=== PATIENT | female | born 1970 | race American Indian/Alaskan Native ===

== ENCOUNTER 2017-09-28 11:42 | Inpatient (IN) | payer OTHER ==
[2017-09-28] MEDS ORDERED: NACL 0.9% 500 ML 500 ML IV ONE (11:53)
--- NOTE | 2017-09-28 12:25 | XRay Report ---
AP CHEST: HISTORY: Sepsis AP view of the chest demonstrates a normal mediastinal and cardiac contour with clear lungs and normal bony and soft tissue structures. IMPRESSION: Unremarkable AP chest.
[2017-09-28 12:42] LABS: Basophils % (Auto) 0.6 % (0.0-1.8); Eosinophils % (Auto) 15.1 % (0.0-4.3); Hematocrit 34.6 % (30.3-42.9); Hemoglobin 10.6 gm/dl (10.1-14.3); Lymphocytes # (Auto) 1.4 K/mm3 (1.2-5.4); Lymphocytes % (Auto) 21.2 % (13.4-35.0); Mean Corpuscular HGB Conc 31 % (30-34); Monocytes # (Auto) 0.4 K/mm3 (0.0-0.8); Monocytes % (Auto) 6.5 % (0.0-7.3); Platelet Count 164 K/mm3 (140-440); Red Blood Count 5.12 M/mm3 (3.65-5.03); Red Cell Distribution Width 17.1 % (13.2-15.2)
[2017-09-28 12:43] LABS: Mean Corpuscular Hemoglobin 21 pg (28-32); Mean Corpuscular Volume 68 fl (79-97)
[2017-09-28 12:51] LABS: INR 0.93 (0.87-1.13)
[2017-09-28 12:53] LABS: Alanine Aminotransferase 23 units/L (7-56); Albumin 3.6 g/dL (3.9-5); BUN/Creatinine Ratio 14; Blood Urea Nitrogen 10 mg/dL (7-17); Hemolysis Index 2
[2017-09-28] MEDS ORDERED: SUBLIMAZE IV ONE (19:04)
[2017-09-28] MEDS ORDERED: ZOFRAN IV ONE (19:04)
--- NOTE | 2017-09-28 19:09 | Emergency Department Report ---
ED Abdominal Pain HPI - General Chief Complaint: Abdominal Pain Stated Complaint: COMPLICATIONS POST SURGERY Time Seen by Provider: 09/28/17 18:46 Source: patient Mode of arrival: Ambulatory Limitations: No Limitations - History of Present Illness Initial Comments: 47 year-old who presents with abdominal pain. Seen in surgery clinic today and sent for CT. had ventral hernia repair early july complicated by what soudns like seroma formation. Now with midline swelling again. Sent from clinic for CT. endorses NV. No true fever, Tmax 100.1. MD Complaint: abdominal pain -: Gradual Location: periumbilical Radiation: none Migration to: no migration Severity: severe Quality: stabbing, sharp Consistency: constant Improves With: nothing Worsens With: nothing Context: recent surgery/procedure Associated Symptoms: nausea, vomiting - Related Data LMP (females 10-50): this week Home Medications Medication Instructions Recorded Confirmed Last Taken No Known Home Medications [No 09/28/17 09/28/17 Unknown Reported Home Medications] Allergies Allergy/AdvReac Type Severity Reaction Status Date / Time methylprednisolone Allergy Hives Verified 09/28/17 11:45 [From Solu-Medrol] moxifloxacin [From Avelox] Allergy Hives Verified 09/28/17 11:45 ED Review of Systems ROS: Stated complaint: COMPLICATIONS POST SURGERY Other details as noted in HPI Comment: All other systems reviewed and negative ED Past Medical Hx - Past Medical History Previous Medical History?: Yes Hx COPD: Yes - Surgical History Past Surgical History?: Yes Hx Cholecystectomy: Yes Additional Surgical History: hernia repair . - Social History Smoking Status: Never Smoker Substance Use Type: Alcohol - Medications Home Medications: Home Medications Medication Instructions Recorded Confirmed Last Taken Type No Known Home Medications [No 09/28/17 09/28/17 Unknown History Reported Home Medications] ED Physical Exam - General Limitations: No Limitations General appearance: alert, in no apparent distress - Head Head exam: Present: atraumatic, normocephalic - Eye Eye exam: Present: normal appearance - ENT ENT exam: Present: normal exam, mucous membranes moist - Neck Neck exam: Present: normal inspection - Respiratory Respiratory exam: Present: normal lung sounds bilaterally. Absent: respiratory distress - Cardiovascular Cardiovascular Exam: Present: regular rate, normal rhythm. Absent: systolic murmur, diastolic murmur, rubs, gallop - GI/Abdominal GI/Abdominal exam: Present: soft, other (Midline lower abdominal incision with palpable tender masses, 2-3 cm. multiple). Absent: distended, guarding, rebound - Extremities Exam Extremities exam: Present: normal inspection - Back Exam Back exam: Present: normal inspection - Neurological Exam Neurological exam: Present: alert, oriented X3 - Psychiatric Psychiatric exam: Present: normal affect, normal mood - Skin Skin exam: Present: warm, dry, intact, normal color. Absent: rash ED Course Vital Signs 09/28/17 09/28/17 11:45 20:12 Temperature 99.2 F 99.2 F Pulse Rate 96 H 90 Respiratory 20 18 Rate Blood Pressure 146/77 Blood Pressure 135/60 [Left] O2 Sat by Pulse 98 98 Oximetry ED Medical Decision Making - Lab Data Result diagrams: 09/28/17 12:02 09/28/17 12:02 Lab Results 09/28/17 09/28/17 09/28/17 Range/Units 12:02 12:02 12:02 WBC 6.5 (4.5-11.0) K/mm3 RBC 5.12 H (3.65-5.03) M/mm3 Hgb 10.6 (10.1-14.3) gm/dl Hct 34.6 (30.3-42.9) % MCV 68 L (79-97) fl MCH 21 L (28-32) pg MCHC 31 (30-34) % RDW 17.1 H (13.2-15.2) % Plt Count 164 (140-440) K/mm3 Lymph % (Auto) 21.2 (13.4-35.0) % [place] % (Auto) 6.5 (0.0-7.3) % Eos % (Auto) 15.1 H (0.0-4.3) % Baso % (Auto) 0.6 (0.0-1.8) % Lymph # 1.4 (1.2-5.4) K/mm3 [place] # 0.4 (0.0-0.8) K/mm3 Eos # 1.0 H (0.0-0.4) K/mm3 Baso # 0.0 (0.0-0.1) K/mm3 Seg Neutrophils % 56.6 (40.0-70.0) % Seg Neutrophils # 3.7 (1.8-7.7) K/mm3 PT 12.9 (12.2-14.9) Sec. INR 0.93 (0.87-1.13) VBG pH (7.320-7.420) Sodium 137 (137-145) mmol/L Potassium 4.1 (3.6-5.0) mmol/L Chloride 96.7 L (98-107) mmol/L Carbon Dioxide 27 (22-30) mmol/L Anion Gap 17 mmol/L BUN 10 (7-17) mg/dL Creatinine 0.7 (0.7-1.2) mg/dL Estimated GFR > 60 ml/min BUN/Creatinine Ratio 14 % Glucose 139 H (65-100) mg/dL Lactic Acid (0.7-2.0) mmol/L Calcium 9.0 (8.4-10.2) mg/dL Total Bilirubin 0.60 (0.1-1.2) mg/dL AST 21 (5-40) units/L ALT 23 (7-56) units/L Alkaline Phosphatase 49 (35-129) units/L Total Protein 7.2 (6.3-8.2) g/dL Albumin 3.6 L (3.9-5) g/dL Albumin/Globulin Ratio 1.0 % HCG, Qual (Negative) Urine Color (Yellow) Urine Turbidity (Clear) Urine pH (5.0-7.0) Ur Specific [place] (1.003-1.030) Urine Protein (Negative) mg/dL Urine Glucose (UA) (Negative) mg/dL Urine Ketones (Negative) mg/dL Urine Blood (Negative) Urine Nitrite (Negative) Ur Reducing Substances Urine Bilirubin (Negative) Urine Ictotest Urine Urobilinogen (<2.0) mg/dL Ur Leukocyte Esterase (Negative) Urine WBC (Auto) (0.0-6.0) /HPF Urine RBC (Auto) (0.0-6.0) /HPF U Epithel Cells (Auto) (0-13.0) /HPF Urine Mucus /HPF Urine Yeast (Budding) /HPF Urine Sperm (DELIVERY DRIVER) /HPF 09/28/17 09/28/17 09/28/17 Range/Units 12:02 12:02 19:22 WBC (4.5-11.0) K/mm3 RBC (3.65-5.03) M/mm3 Hgb (10.1-14.3) gm/dl Hct (30.3-42.9) % MCV (79-97) fl MCH (28-32) pg MCHC (30-34) % RDW (13.2-15.2) % Plt Count (140-440) K/mm3 Lymph % (Auto) (13.4-35.0) % [place] % (Auto) (0.0-7.3) % Eos % (Auto) (0.0-4.3) % Baso % (Auto) (0.0-1.8) % Lymph # (1.2-5.4) K/mm3 [place] # (0.0-0.8) K/mm3 Eos # (0.0-0.4) K/mm3 Baso # (0.0-0.1) K/mm3 Seg Neutrophils % (40.0-70.0) % Seg Neutrophils # (1.8-7.7) K/mm3 PT (12.2-14.9) Sec. INR (0.87-1.13) VBG pH 7.351 (7.320-7.420) Sodium (137-145) mmol/L Potassium (3.6-5.0) mmol/L Chloride (98-107) mmol/L Carbon Dioxide (22-30) mmol/L Anion Gap mmol/L BUN (7-17) mg/dL Creatinine (0.7-1.2) mg/dL Estimated GFR ml/min BUN/Creatinine Ratio % Glucose (65-100) mg/dL Lactic Acid 1.20 (0.7-2.0) mmol/L Calcium (8.4-10.2) mg/dL Total Bilirubin (0.1-1.2) mg/dL AST (5-40) units/L ALT (7-56) units/L Alkaline Phosphatase (35-129) units/L Total Protein (6.3-8.2) g/dL Albumin (3.9-5) g/dL Albumin/Globulin Ratio % HCG, Qual Negative (Negative) Urine Color (Yellow) Urine Turbidity (Clear) Urine pH (5.0-7.0) Ur Specific [place] (1.003-1.030) Urine Protein (Negative) mg/dL Urine Glucose (UA) (Negative) mg/dL Urine Ketones (Negative) mg/dL Urine Blood (Negative) Urine Nitrite (Negative) Ur Reducing Substances Urine Bilirubin (Negative) Urine Ictotest Urine Urobilinogen (<2.0) mg/dL Ur Leukocyte Esterase (Negative) Urine WBC (Auto) (0.0-6.0) /HPF Urine RBC (Auto) (0.0-6.0) /HPF U Epithel Cells (Auto) (0-13.0) /HPF Urine Mucus /HPF Urine Yeast (Budding) /HPF Urine Sperm (DELIVERY DRIVER) /HPF 09/28/17 Range/Units 19:36 WBC (4.5-11.0) K/mm3 RBC (3.65-5.03) M/mm3 Hgb (10.1-14.3) gm/dl Hct (30.3-42.9) % MCV (79-97) fl MCH (28-32) pg MCHC (30-34) % RDW (13.2-15.2) % Plt Count (140-440) K/mm3 Lymph % (Auto) (13.4-35.0) % [place] % (Auto) (0.0-7.3) % Eos % (Auto) (0.0-4.3) % Baso % (Auto) (0.0-1.8) % Lymph # (1.2-5.4) K/mm3 [place] # (0.0-0.8) K/mm3 Eos # (0.0-0.4) K/mm3 Baso # (0.0-0.1) K/mm3 Seg Neutrophils % (40.0-70.0) % Seg Neutrophils # (1.8-7.7) K/mm3 PT (12.2-14.9) Sec. INR (0.87-1.13) VBG pH (7.320-7.420) Sodium (137-145) mmol/L Potassium (3.6-5.0) mmol/L Chloride (98-107) mmol/L Carbon Dioxide (22-30) mmol/L Anion Gap mmol/L BUN (7-17) mg/dL Creatinine (0.7-1.2) mg/dL Estimated GFR ml/min BUN/Creatinine Ratio % Glucose (65-100) mg/dL Lactic Acid (0.7-2.0) mmol/L Calcium (8.4-10.2) mg/dL Total Bilirubin (0.1-1.2) mg/dL AST (5-40) units/L ALT (7-56) units/L Alkaline Phosphatase (35-129) units/L Total Protein (6.3-8.2) g/dL Albumin (3.9-5) g/dL Albumin/Globulin Ratio % HCG, Qual (Negative) Urine Color Yellow (Yellow) Urine Turbidity Slightly cloudy (Clear) Urine pH 6.0 (5.0-7.0) Ur Specific [place] 1.024 (1.003-1.030) Urine Protein 100 mg/dl (Negative) mg/dL Urine Glucose (UA) Neg (Negative) mg/dL Urine Ketones Neg (Negative) mg/dL Urine Blood Lg (Negative) Urine Nitrite Neg (Negative) Ur Reducing Substances Not Reportable Urine Bilirubin Neg (Negative) Urine Ictotest Not Reportable Urine Urobilinogen 2.0 (<2.0) mg/dL Ur Leukocyte Esterase Sm (Negative) Urine WBC (Auto) > 182.0 H (0.0-6.0) /HPF Urine RBC (Auto) > 182.0 (0.0-6.0) /HPF U Epithel Cells (Auto) 11.0 (0-13.0) /HPF Urine Mucus 3+ /HPF Urine Yeast (Budding) 3+ /HPF Urine Sperm 1+ (DELIVERY DRIVER) /HPF - Radiology Data Radiology results: report reviewed - Medical Decision Making Ms Wagner is a 47 year-old woman with hx of COPD and ventral hernia repair in July who presents from general surgery office for evaluation and CT scan. Had seroma drained previously. Has tender swelling in her incision site. VSS. Afebrile here. Labs wnl. Exam with non-reducible masses within her incision. Suspect this is seroma vs hernia vs abscess. no evidence of infection on exam or labs. CT reveals small fat containing hernias. Unable to reduce. Spoke with Dr. Richter who would like admission to hospitalist. Would like IR consult for drainage. Dr Richter will see patient in the morning. Per Dr Richter, patient is NOT to receive narcotics. Received one dose fentanyl on arrival. Given toradol as well. Admit to hospital medicine. Critical care attestation.: If time is entered above; I have spent that time in minutes in the direct care of this critically ill patient, excluding procedure time. ED Disposition Clinical Impression: Ventral hernia, recurrent Disposition: DC-09 OP ADMIT IP TO THIS HOSP Is pt being admited?: Yes Does the pt Need Aspirin: No Condition: Stable Instructions: Abdominal Pain (ED) Referrals: PRIMARY CARE, [Primary Care Provider] - 3-5 Days
[2017-09-28 20:03] LABS: Mucus,Urine 3+ /HPF; Sperm,Urine 1+ /HPF (NP)
[2017-09-28 20:08] LABS: Bilirubin,Urine NEG (Negative); Blood,Urine LG (Negative)
[2017-09-28 20:11] LABS: RBC,Urine > 182.0 /HPF (0.0-6.0); WBC,Urine > 182.0 /HPF (0.0-6.0)
[2017-09-28 20:13] LABS: Color,Urine Yellow (Yellow)
--- NOTE | 2017-09-28 20:48 | Cat Scan Report ---
FINAL REPORT PROCEDURE: CT ABDOMEN PELVIS WO CON TECHNIQUE: Computerized axial tomography of the abdomen and pelvis was performed without intravenous contrast. This study is performed without intravascular contrast material and its sensitivity for abdominal and pelvic pathology, including neoplasms, inflammation, abscess, free fluid, thrombosis, arterial dissection and infarction, is reduced compared with a contrast enhanced study. HISTORY: abdominal pain COMPARISON: No prior studies are available for comparison. FINDINGS: Lower Lung klein: No focal abnormality seen. Upper Abdomen: Large hiatal hernia is visualized. Gallbladder is surgically absent. Unenhanced images of the liver are unremarkable. The adrenal glands, pancreas and spleen are unremarkable. Kidneys, Ureters and Urinary bladder: There is a coarse benign-appearing calcification in the middle 3rd of the right kidney measuring 1.5 x 0.7 centimeters. Second smaller calcification also visualized measuring approximately 4 millimeters in size. No renal masses are identified. There is no hydronephrosis. No ureteral calculi are visualized. The ureters are not distended. Urinary bladder is nearly empty and difficult to characterize. Retroperitoneum: Atherosclerotic changes are seen in the abdominal aorta and iliac arteries. No aneurysm is visualized. Nonspecific subcentimeter lymph nodes are seen in the retroperitoneum. No pathologically enlarged lymph nodes are identified. Bowel: The rectum is moderately distended with stool otherwise is unremarkable. Minimal diverticulosis visualized in the splenic flexure and mid transverse colon. The appendix is not visualized. No evidence of bowel obstruction. There is no ascites or free intraperitoneal gas. There is a anterior pelvic wall hernia just to the left of midline. This contains a moderate amount of fluid. There is also adipose tissue present. This also shows irregular soft tissue density anteriorly seen on image 139 series 2. This measures up to 1.4 centimeters in thickness. This could represent a seroma or hematoma within a hernia. Wall thickening anteriorly may represent inflammatory response. I cannot exclude a mass in the anterior wall of the hernia. Reproductive organs: Uterus and adnexa are unremarkable. Other: No acute bony abnormalities are visualized. IMPRESSION: Abnormal fluid collections seen adipose tissue anterior to the lower pelvis. I suspect this represents a hernia containing moderate amount of fluid and adipose tissue. As indicated above there appears to be soft tissue thickening of the anterior wall the hernia sac. This may represent an inflammatory response. I cannot exclude a mass. There is no evidence of bowel obstruction. No ascites is seen in the peritoneal cavity. Prior cholecystectomy. Benign-appearing moderate-sized calculus right kidney. The rectum is moderately distended with stool otherwise is unremarkable. Minimal colonic diverticulosis as described. Large hiatal hernia is visualized..
[2017-09-28] MEDS ORDERED: MORPHINE IV ONE (21:10)
[2017-09-28] MEDS ORDERED: TORADOL IV ONE (21:11)
[2017-09-28] MEDS ORDERED: ZOFRAN IV PRN (22:28)
[2017-09-28] MEDS ORDERED: TYLENOL PO PRN (22:29)
[2017-09-29] MEDS: HEPARIN SUB-Q SCH ×3 (07:38→23:03)
--- NOTE | 2017-09-29 08:48 | History and Physical Report ---
CHIEF COMPLAINT: Abdominal discomfort. HISTORY OF PRESENT ILLNESS: The patient is a 47-year-old female presenting with abdominal pain. The patient went for followup with the surgeon, [place]. She had surgery involving ventral hernia repair about a month ago and has been having some complications with swelling and fluid collection. She was asked by the surgeon to come to the office. At the surgeon's office, the patient was evaluated and then sent to the Emergency Room. There is no history of fever, no history of chills. There is history of nausea and vomiting, but no history of constipation or diarrhea. The patient denied history of chest pain or shortness of breath and only complained about abdominal pain with swelling around the surgical area. PAST MEDICAL HISTORY: Pertinent for COPD. PAST SURGICAL HISTORY: Pertinent for recent hernia repair as well as the cholecystectomy and . FAMILY HISTORY: Noncontributory. SOCIAL HISTORY: The patient does not smoke, does not drink alcohol, and does not use illicit drugs. MEDICATIONS: The patient's home medications are not known. ALLERGIES: The patient is allergic to METHYLPREDNISOLONE AND MOXIFLOXACIN. REVIEW OF SYSTEMS. CONSTITUTIONAL: There is no fever, no chills, no diaphoresis. HEENT: There is no headache or sore throat. CARDIOVASCULAR: There is no chest pain or orthopnea. RESPIRATORY: There is no shortness of breath or cough. GASTROINTESTINAL: Swelling in the anterior abdominal area noted. MUSCULOSKELETAL: There is no joint swelling or tenderness. DERMATOLOGICAL: There is no skin rash . GENITOURINARY: Show no costovertebral angle tenderness. PERTINENT LABORATORY AND IMAGING STUDIES: The patient has CBC done that shows normal white cells, normal hemoglobin and normal hematocrit with unremarkable CBC differential. The patient's chemistry was unremarkable. Urinalysis show positive urine leukocyte esterase with elevated urine WBC of greater than 182 and elevated urine RBC of greater than 182. IMAGING STUDIES: The patient had an abdominal and pelvic CT with contrast done and this shows hernia with fluid and adipose tissue collection in the anterior aspect of the abdomen. DIAGNOSES: 1. Ventral hernia at the surgical site. 2. Urinary tract infection. PLAN: The patient will be admitted to medical floor and will continue the Surgical Consult with Dr. Christensen who was part of the surgeons that handles the patient's surgical care. The patient will also be on IV ceftriaxone 1 gram daily for treatment of UTI and DVT prophylaxis will be with heparin 5000 units subq q. 12 and the patient will be on IV Zofran 4 mg every 8 hours as needed for nausea and vomiting. Further management of the patient's condition will be determined by the surgeon. The patient will remain n.p.o. until seen by the surgeon. JOB# [id number] OCN/NTS
[2017-09-29] MEDS ORDERED: ROCEPHIN/NS 1 GM/50 ML 1 GM/50 ML BAG IV SCH (10:00)
[2017-09-29] MEDS ORDERED: VERSED IV ONE (10:27)
[2017-09-29] MEDS ORDERED: SUBLIMAZE IV ONE (10:27)
--- NOTE | 2017-09-29 11:51 | Consultation ---
History of Present Illness - Reason for Consult Consult date: 09/29/17 abdominal wall seroma - History of Present Illness With a history of ventral hernia repair presenting with abdominal wall seroma. She complains of abdominal pain. Past History Past Surgical History: Other (ventral hernia repair) Social history: no significant social history Family history: no significant family history Medications and Allergies Allergies Allergy/AdvReac Type Severity Reaction Status Date / Time methylprednisolone Allergy Hives Verified 09/28/17 11:45 [From Solu-Medrol] moxifloxacin [From Avelox] Allergy Hives Verified 09/28/17 11:45 Home Medications Medication Instructions Recorded Confirmed Last Taken Type No Known Home Medications [No 09/28/17 09/28/17 Unknown History Reported Home Medications] Active Meds: Active Medications Acetaminophen (Tylenol) 650 mg PO Q4H PRN PRN Reason: Fever >101 Last Admin: 09/29/17 07:54 Dose: 650 mg Heparin Sodium (Porcine) (Heparin) 5,000 unit SUB-Q Q12HR ELOY Last Admin: 09/29/17 11:22 Dose: Not Given Ceftriaxone Sodium 1 gm/ (Sodium Chloride) 20 mls @ 2 mls/min IV Q24HR ELOY Ondansetron HCl (Zofran) 4 mg IV Q8H PRN PRN Reason: Nausea And Vomiting Review of Systems All systems: negative Exam - Constitutional Vitals: Temp Pulse Resp BP Pulse Ox 98.1 F 83 14 113/63 98 09/29/17 11:20 09/29/17 11:30 09/29/17 11:30 09/29/17 11:30 09/29/17 11:30 General appearance: Present: no acute distress, obese - EENT Eyes: Present: PERRL, EOM intact ENT: hearing intact - Neck Neck: Present: supple, normal ROM - Respiratory Respiratory effort: normal - Cardiovascular Rhythm: regular - Extremities Extremities: no ischemia - Abdominal General gastrointestinal: Present: tender (abdominal wall) - Rectal Rectal Exam: deferred - Integumentary Integumentary: Present: clear - Psychiatric Psychiatric: appropriate mood/affect, cooperative Results - Labs CBC & Chem 7: 09/28/17 12:02 09/28/17 12:02 Labs: Abnormal lab results 09/28/17 09/28/17 09/28/17 Range/Units 12:02 12:02 19:36 RBC 5.12 H (3.65-5.03) M/mm3 MCV 68 L (79-97) fl MCH 21 L (28-32) pg RDW 17.1 H (13.2-15.2) % Eos % (Auto) 15.1 H (0.0-4.3) % Eos # 1.0 H (0.0-0.4) K/mm3 Chloride 96.7 L (98-107) mmol/L Glucose 139 H (65-100) mg/dL Albumin 3.6 L (3.9-5) g/dL Urine WBC (Auto) > 182.0 H (0.0-6.0) /HPF - Imaging and Cardiology CT scan - abdomen: image reviewed Assessment and Plan Patient will be scheduled for placement of an 8 Swedish drain within the seroma to allow for drainage. Once the drainage volume decreases below 10 the 15 mL's per day, it may be removed.
[2017-09-29] MEDS: cefTRIAXone 1 GM in NACL 0.9% 20 ML IV SCH (12:05)
--- NOTE | 2017-09-29 13:25 | Cat Scan Report ---
Exam: Exam: CT-guided placement of drainage catheter in abdominal wall seroma Clinical indication: Patient with abdominal wall seroma D.: 09/29/ and 18 Procedure: Following an explanation of the risks, benefits and alternatives; written informed consent was obtained. The patient was brought to the CT scanner and placed in supine position on the gantry. Initial career development associate images the abdomen were performed an appropriate access site was chosen in the left lower quadrant. Patient's left lower quadrant was prepped and draped in the usual sterile fashion. 1% lidocaine was used for anesthesia. Using intermittent CT guidance, an 18-gauge 10 cm trocar needle was advanced into the abdominal wall seroma. There was prompt return of predominantly serous fluid with a serosanguineous component. No purulence is identified. A 0.035 guidewire was then advanced through the needle and coiled within the multiloculated seromatous. The needle was removed. Following serial dilation over the guidewire, an 8 Chinese pigtail catheter was advanced over the guidewire and positioned within the medial central aspect of the fluid collections. Approximately 10 mL's of serous fluid was aspirated. Samples were sent for laboratory analysis. The catheter was securely fastened to the skin surface using 2-0 Ethilon suture and a sterile dressing applied. The catheter was then placed to PADDY bulb drainage. The patient tolerated the procedure well. There were no immediate post procedure complications. Conscious sedation was performed under the guidance of radiologic nursing. Continuous cardiopulmonary monitoring was utilized. Impression: 1) CT-guided placement of 8 Chinese drainage catheter in abdominal wall seroma with prompt return of serous fluid. A component of fluid was sero-sanguinous. No purulence is identified. Sample sent for laboratory analysis.
--- NOTE | 2017-09-29 15:45 | Progress Note ---
Assessment and Plan Ventral hernia repair presenting with abdominal wall seroma - s/p Ct guided drainage placed, cont supportive care - pt will do outpt follow up SIRS - probably due to abdominal wall seroma - will follow urine cx and wound cx - cont abx for now Obesity: dietary recommendation DVT Px, lovenox Brief History: 47 yo F with hx of ventral hernia and multiple abdominal operations now s/p robotic assisted laparoscopic lysis of adhesions, ventral hernia repair with mesh in July [address] Christensen was sent to ER for fever w/u as temp in office was 100.1. It was also felt that she likely had re accumulated seroma which was leading to her pain. She was seen by IR and a CT guided drainage catheter was placed. Radiological data: CT drain cyst/abscess: CT-guided placement of 8 [place] drainage catheter in abdominal wall seroma with prompt return of serous fluid. A component of fluid was sero-sanguinous. No purulence is identified. Sample sent for laboratory analysis. CT abdomen/pelvis Abnormal fluid collections seen adipose tissue anterior to the lower pelvis. I suspect this represents a hernia containing moderate amount of fluid and adipose tissue. As indicated above there appears to be soft tissue thickening of the anterior wall the hernia sac. This may represent an inflammatory response. I cannot exclude a mass. There is no evidence of bowel obstruction. No ascites is seen in the peritoneal cavity. Prior cholecystectomy. Benign- appearing moderate-sized calculus right kidney. The rectum is moderately distended with stool otherwise is unremarkable. Minimal colonic diverticulosis as described. Large hiatal hernia is visualized.. CXR: Unremarkable AP chest. Hospitalist Physical exam: GENERAL: well-developed and well-nourished lying on bed appeared to be in no discomfort. HEENT: Normocephalic. Atraumatic. No conjunctival congestion or icterus. Patient has moist mucous membranes. NECK: Supple. Trachea midline. CHEST/LUNGS: Clear to auscultated bilaterally, breathing nonlabored. No wheezes crackles or rhonchi. HEART/CARDIOVASCULAR: Regular in rate and rhythm. S1 and S2 positive. ABDOMEN: Abdomen is soft, nontender. Patient has normal bowel sounds. SKIN: There is no rash. Warm and dry. NEURO: No focal motor deficit. Follows command. MUSCULOSKELETAL: No joint effusion or tenderness. EXTRIMITY: No edema, no cyanosis or clubbing. PSYCH: Cooperative. Subjective Date of service: 09/29/17 Interval history: Patient seen and examined. Medical records and medication list reviewed. No acute event overnight noted by the RN. Patient denies any chest pain or difficulty breathing. Patient is tolerating diet. Discussed plan of care at bedside with patient. Objective - Constitutional Vitals: Vital Signs - 12hr 09/29/17 09/29/17 09/29/17 07:54 08:03 10:48 Temperature 98.7 F Temperature [ Post-Procedure] Temperature [ 98.5 F Pre-Procedure] Pulse Rate 75 Pulse Rate [ Intra-Procedure ] Pulse Rate [ Post-Procedure] Pulse Rate [Pre 77 -Procedure] Respiratory 20 20 Rate Respiratory Rate [Intra- Procedure] Respiratory Rate [Post- Procedure] Respiratory 19 Rate [Pre- Procedure] Blood Pressure 102/57 Blood Pressure [Intra- Procedure] Blood Pressure [Post-Procedure ] Blood Pressure 108/66 [Pre-Procedure] O2 Sat by Pulse 96 Oximetry O2 Sat by Pulse Oximetry [ Intra-Procedure ] O2 Sat by Pulse Oximetry [Post -Procedure] O2 Sat by Pulse 100 Oximetry [Pre- Procedure] 09/29/17 09/29/17 09/29/17 10:49 10:50 10:55 Temperature Temperature [ Post-Procedure] Temperature [ Pre-Procedure] Pulse Rate Pulse Rate [ 80 76 Intra-Procedure ] Pulse Rate [ Post-Procedure] Pulse Rate [Pre -Procedure] Respiratory 18 Rate Respiratory 18 18 Rate [Intra- Procedure] Respiratory Rate [Post- Procedure] Respiratory Rate [Pre- Procedure] Blood Pressure Blood Pressure 117/69 111/64 [Intra- Procedure] Blood Pressure [Post-Procedure ] Blood Pressure [Pre-Procedure] O2 Sat by Pulse Oximetry O2 Sat by Pulse 99 98 Oximetry [ Intra-Procedure ] O2 Sat by Pulse Oximetry [Post -Procedure] O2 Sat by Pulse Oximetry [Pre- Procedure] 09/29/17 09/29/17 09/29/17 11:00 11:05 11:10 Temperature Temperature [ Post-Procedure] Temperature [ Pre-Procedure] Pulse Rate Pulse Rate [ 77 77 80 Intra-Procedure ] Pulse Rate [ Post-Procedure] Pulse Rate [Pre -Procedure] Respiratory Rate Respiratory 16 16 18 Rate [Intra- Procedure] Respiratory Rate [Post- Procedure] Respiratory Rate [Pre- Procedure] Blood Pressure Blood Pressure 110/64 110/64 115/60 [Intra- Procedure] Blood Pressure [Post-Procedure ] Blood Pressure [Pre-Procedure] O2 Sat by Pulse Oximetry O2 Sat by Pulse 99 99 98 Oximetry [ Intra-Procedure ] O2 Sat by Pulse Oximetry [Post -Procedure] O2 Sat by Pulse Oximetry [Pre- Procedure] 09/29/17 09/29/17 09/29/17 11:15 11:19 11:20 Temperature Temperature [ 98.1 F Post-Procedure] Temperature [ Pre-Procedure] Pulse Rate Pulse Rate [ 83 Intra-Procedure ] Pulse Rate [ 79 Post-Procedure] Pulse Rate [Pre -Procedure] Respiratory 18 Rate Respiratory 14 Rate [Intra- Procedure] Respiratory 14 Rate [Post- Procedure] Respiratory Rate [Pre- Procedure] Blood Pressure Blood Pressure 121/63 [Intra- Procedure] Blood Pressure 113/69 [Post-Procedure ] Blood Pressure [Pre-Procedure] O2 Sat by Pulse Oximetry O2 Sat by Pulse 99 Oximetry [ Intra-Procedure ] O2 Sat by Pulse 99 Oximetry [Post -Procedure] O2 Sat by Pulse Oximetry [Pre- Procedure] 09/29/17 11:30 Temperature Temperature [ Post-Procedure] Temperature [ Pre-Procedure] Pulse Rate Pulse Rate [ Intra-Procedure ] Pulse Rate [ 83 Post-Procedure] Pulse Rate [Pre -Procedure] Respiratory Rate Respiratory Rate [Intra- Procedure] Respiratory 14 Rate [Post- Procedure] Respiratory Rate [Pre- Procedure] Blood Pressure Blood Pressure [Intra- Procedure] Blood Pressure 113/63 [Post-Procedure ] Blood Pressure [Pre-Procedure] O2 Sat by Pulse Oximetry O2 Sat by Pulse Oximetry [ Intra-Procedure ] O2 Sat by Pulse 98 Oximetry [Post -Procedure] O2 Sat by Pulse Oximetry [Pre- Procedure] - Labs CBC & Chem 7: 09/28/17 12:02 09/28/17 12:02 Labs: Abnormal lab results 09/28/17 Range/Units 19:36 Urine WBC (Auto) > 182.0 H (0.0-6.0) /HPF
[2017-09-29] MEDS: NORCO 5/325 PO PRN ×2 (17:25→23:03)
--- NOTE | 2017-09-29 17:30 | Consultation ---
History of Present Illness Consult date: 09/29/17 Chief complaint: abd pain - History of present illness History of present illness: 47 yo F with hx of ventral hernia and multiple abdominal operations now s/p robotic assisted laparoscopic lysis of adhesions, ventral hernia repair with mesh in July [address] Christensen. The patient has been back and forth to the [facility] ER near her home with abdominal pain after the surgery. She was readmitted to [facility] one month ago due to abdominal pain, subcutaneous fluid collections which were drained and found to be post op seromas. She felt better after drainage and was discharged. Since then, she states the pain has restarted and she again went to [facility] multiple times for pain medication. Despite telling the patient multiple times to follow up in my office, she did not until yesterday. The patient was sent to ER for fever w/u as temp in office was 100.1. It was also felt that she likely had re accumulated seroma which was leading to her pain. She was seen by IR and a CT guided drainage catheter was placed. The patient states she feels much better after the drainage procedure and her pain is minimal. She is tolerating a diet. She has been afebrile. Past History Past Medical History: other (asthma, chronic pain, ventral hernia, anxiety, obesity, hx of suicidal ideations) Past Surgical History: , hysterectomy, hernia repair, Other (ventral hernia repair with mesh multiple) Social history: no significant social history, alcohol abuse (social). denies: smoking Family history: no significant family history Medications and Allergies Allergies Allergy/AdvReac Type Severity Reaction Status Date / Time methylprednisolone Allergy Hives Verified 09/28/17 11:45 [From Solu-Medrol] moxifloxacin [From Avelox] Allergy Hives Verified 09/28/17 11:45 Home Medications Medication Instructions Recorded Confirmed Last Taken Type No Known Home Medications [No 09/28/17 09/28/17 Unknown History Reported Home Medications] Active Meds: Active Medications Acetaminophen (Tylenol) 650 mg PO Q4H PRN PRN Reason: Fever >101 Last Admin: 09/29/17 07:54 Dose: 650 mg Acetaminophen/Hydrocodone Bitart ([place] 5/325) 1 each PO Q6H PRN PRN Reason: Pain, Moderate (4-6) Last Admin: 09/29/17 17:25 Dose: 1 each Heparin Sodium (Porcine) (Heparin) 5,000 unit SUB-Q Q12HR COUNT INCLUDES THE [facility] Last Admin: 09/29/17 11:22 Dose: Not Given Ceftriaxone Sodium 1 gm/ (Sodium Chloride) 20 mls @ 2 mls/min IV Q24HR COUNT INCLUDES THE [facility] Last Admin: 09/29/17 12:05 Dose: 2 mls/min Ondansetron HCl (Zofran) 4 mg IV Q8H PRN PRN Reason: Nausea And Vomiting Review of Systems All systems: negative (10 point ROS performed and negative except for that listed in HPI) Exam Vital Signs Temp Pulse Resp BP Pulse Ox 99.2 F 96 H 20 146/77 98 09/28/17 11:45 09/28/17 11:45 09/28/17 11:45 09/28/17 11:45 09/28/17 11:45 Narrative exam: Gen: AAOx3. NAD CV: S1, S2+ resp: even and unlabored Abd: soft, NT, ND. PADDY drain with serosang drainage. Dressing c/d/i Ext: no c/c/e Results - Labs 09/28/17 12:02 09/28/17 12:02 Abnormal lab results 09/28/17 Range/Units 19:36 Urine WBC (Auto) > 182.0 H (0.0-6.0) /HPF - Imaging CT scan - abdomen: report reviewed, image reviewed CT scan - pelvis: report reviewed, image reviewed Assessment and Plan 47 yo F with post operative recurrent seroma s/p robotic assisted laparoscopic lysis of adhesions, ventral hernia repair with mesh (July 2017) s/p CT guided drain placement by IR Plan: 1. Reg diet 2. PRN PO pain control, no IV pain meds please 3. PADDY drain management 4. cultures pending but likely sterile collection 5. OOB/ambulate 6. OK to dc home from surgery standpoint with follow up in surgery office in 1 week. D/W Dr. Bhatia
[2017-09-30] MEDS: cefTRIAXone 1 GM in NACL 0.9% 20 ML IV SCH (10:44)
[2017-09-30] MEDS: NORCO 5/325 PO PRN ×2 (10:44→16:53)
[2017-09-30] MEDS: HEPARIN SUB-Q SCH (10:46)
[2017-09-30 12:38] VITALS: BP 113/60
--- NOTE | 2017-09-30 15:11 | Discharge Summary ---
<ARIANA HANCOCK - Last Filed: 09/30/17 15:09> Providers - Providers Date of Admission: 09/28/17 22:23 Date of discharge: 09/30/17 Attending physician: ARIANA HANCOCK 09/28/17 22:25 Consult to Physician [CONS] Routine Comment: Consulting Provider: ONEAL HOOPER Physician Instructions: Reason For Exam: VENTRAL HERNIA 09/29/17 09:17 Consult to Interventional Radiology [CONS] Routine Consulting Provider: JOSE ZHAO Reason For Exam: drain placement subcutaneous seroma Place consult to:: DR. VÁZQUEZ Notified:: DR. VÁZQUEZ Phone number called:: IN HOUSE Was contact made?: Yes If yes, spoke with:: MD Time called:: 08:27 Primary care physician: PH[employer]ICAL [employer] TEACHER Hospitalization Condition: Stable Hospital course: Brief History: 47 yo F with hx of ventral hernia and multiple abdominal operations now s/p robotic assisted laparoscopic lysis of adhesions, ventral hernia repair with mesh in July [address] Hooper was sent to ER for fever w/u as temp in office was 100.1. It was also felt that she likely had re accumulated seroma which was leading to her pain. She was seen by IR and a CT guided drainage catheter was placed. Discharge diagnosis and management: Ventral hernia repair presenting with abdominal wall seroma - s/p Ct guided drainage placed, cont supportive care - pt will do outpt follow up SIRS - probably due to abdominal wall seroma - will follow urine cx and wound cx - cont abx for now Obesity: dietary recommendation DVT Px, lovenox Radiological data: CT drain cyst/abscess: CT-guided placement of 8 [place] drainage catheter in abdominal wall seroma with prompt return of serous fluid. A component of fluid was sero-sanguinous. No purulence is identified. Sample sent for laboratory analysis. CT abdomen/pelvis Abnormal fluid collections seen adipose tissue anterior to the lower pelvis. I suspect this represents a hernia containing moderate amount of fluid and adipose tissue. As indicated above there appears to be soft tissue thickening of the anterior wall the hernia sac. This may represent an inflammatory response. I cannot exclude a mass. There is no evidence of bowel obstruction. No ascites is seen in the peritoneal cavity. Prior cholecystectomy. Benign- appearing moderate-sized calculus right kidney. The rectum is moderately distended with stool otherwise is unremarkable. Minimal colonic diverticulosis as described. Large hiatal hernia is visualized.. CXR: Unremarkable AP chest. Hospitalist Physical exam: GENERAL: well-developed and well-nourished lying on bed appeared to be in no discomfort. HEENT: Normocephalic. Atraumatic. No conjunctival congestion or icterus. Patient has moist mucous membranes. NECK: Supple. Trachea midline. CHEST/LUNGS: Clear to auscultated bilaterally, breathing nonlabored. No wheezes crackles or rhonchi. HEART/CARDIOVASCULAR: Regular in rate and rhythm. S1 and S2 positive. ABDOMEN: Abdomen is soft, nontender. Patient has normal bowel sounds. SKIN: There is no rash. Warm and dry. NEURO: No focal motor deficit. Follows command. MUSCULOSKELETAL: No joint effusion or tenderness. EXTRIMITY: No edema, no cyanosis or clubbing. PSYCH: Cooperative. Disposition: DC-01 TO HOME OR SELFCARE Time spent for discharge: 34 minutes Core Measure Documentation - Palliative Care Palliative Care/ Comfort Measures: Not Applicable - Core Measures Any of the following diagnoses?: none Exam - Constitutional Vitals: Temp Pulse Resp BP Pulse Ox 98.5 F 83 20 113/60 98 09/30/17 11:53 09/30/17 11:53 09/30/17 11:53 09/30/17 11:53 09/30/17 11:53 Plan Activity: advance as tolerated Weight Bearing Status: Non-Weight Bearing Diet: low fat, low salt Additional Instructions: f/u with Dr Hooper in one week Follow up with: PRIMARY CAREMD [Primary Care Provider] - 3-5 Days ONEAL HOOPER DO [Staff Physician] - 7 Days Prescriptions: HYDROcodone/APAP 5-325 [[place] 5-325 mg TAB] 1 each PO Q6H PRN #10 tablet PRN Reason: Pain, Moderate (4-6) <ONEAL HOOPER - Last Filed: 09/30/17 16:15> Providers - Providers Date of Admission: 09/28/17 22:23 Attending physician: ARIANA HANCOCK 09/28/17 22:25 Consult to Physician [CONS] Routine Comment: Consulting Provider: ONEAL HOOPER Physician Instructions: Reason For Exam: VENTRAL HERNIA 09/29/17 09:17 Consult to Interventional Radiology [CONS] Routine Consulting Provider: JOSE ZHAO Reason For Exam: drain placement subcutaneous seroma Place consult to:: DR. VÁZQUEZ Notified:: DR. VÁZQUEZ Phone number called:: IN HOUSE Was contact made?: Yes If yes, spoke with:: Time called:: 08:27 Primary care physician: PH[employer] TEACHER Exam - Constitutional Vitals: Temp Pulse Resp BP Pulse Ox 98.5 F 83 20 113/60 98 09/30/17 11:53 09/30/17 11:53 09/30/17 11:53 09/30/17 11:53 09/30/17 11:53 Plan Activity: other (no heavy lifting more than 15 lbs) Wound: open to air Special Instructions: other (PADDY drain care - please pay close attention to the drain. May shower with the dressing in place. Pat area dry. Empty drain every day as shown by nurse and record output.) Additional Instructions: Call Dr. Hooper's office with any questions regarding PADDY drain
== END 2017-09-30 18:00 | disposition home or self-care (01) | DRG 920 ==
LOC: ED 11:42 → 3A 22:23
PROVIDERS: ADMIT Internal Medicine; ATTEND Internal Medicine
PROC: 0W9F30Z Drainage of Abdominal Wall with Drainage Device, Percutaneous Approach (ICD-10-PCS; principal; 2017-09-29)
DX: K91.873 Postprocedural seroma of a digestive system organ or structure following other procedure (principal); R65.10 Systemic inflammatory response syndrome (SIRS) of non-infectious origin without acute organ dysfunction; N39.0 Urinary tract infection, site not specified; E66.9 Obesity, unspecified; G89.29 Other chronic pain; J44.9 Chronic obstructive pulmonary disease, unspecified; K43.9 Ventral hernia without obstruction or gangrene; F41.9 Anxiety disorder, unspecified; Z90.710 Acquired absence of both cervix and uterus; Z68.41 Body mass index [BMI] 40.0-44.9, adult; Z90.49 Acquired absence of other specified parts of digestive tract; Z72.89 Other problems related to lifestyle
CPT/HCPCS: 10160; 36415; 71045; 74176; 77012; 80053; 81001; 82140; 82805; 84703; 85025; 85610; 87040; 87086; 87116; 93005; 93010; C1769; J0696; J1644; J1885; J2405; J3010

== ENCOUNTER 2017-10-30 18:10 | Emergency (ER) | payer SELFPAY ==
--- NOTE | 2017-10-30 18:43 | Event Note ---
Date: 10/30/17 Received call from consulting general surgeon, Dr. Sue Christensen. Patient has failed to follow-up, and the general surgeon recommends removal of the pigtail catheter as long as no obvious contraindications exist. She is available for phone or er consultation if necessary.
[2017-10-30 23:35] VITALS: BP 125/87
--- NOTE | 2017-10-30 23:42 | Emergency Department Report ---
ED General Adult HPI - General Chief complaint: Medical Clearance Stated complaint: DRAIN REMOVED Source: patient Mode of arrival: Ambulatory Limitations: No Limitations - History of Present Illness Initial comments: Patient was sent to the emergency room by her surgeon Dr Hooper to remove the pigtail catheter on the subcutaneous part of the lower left abdomen. -: Gradual Location: abdomen Radiation: non-radiation Severity scale (0 -10): 0 Consistency: constant Improves with: none Worsens with: none Associated Symptoms: denies other symptoms Treatments Prior to Arrival: none - Related Data Previous Rx's Medication Instructions Recorded Last Taken Type HYDROcodone/APAP 5-325 [[place] 1 each PO Q6H PRN #10 tablet 09/30/17 Unknown Rx 5-325 mg TAB] Allergies Allergy/AdvReac Type Severity Reaction Status Date / Time methylprednisolone Allergy Hives Verified 09/28/17 11:45 [From Solu-Medrol] moxifloxacin [From Avelox] Allergy Hives Verified 09/28/17 11:45 ED Review of Systems ROS: Stated complaint: DRAIN REMOVED Other details as noted in HPI Comment: All other systems reviewed and negative Constitutional: no symptoms reported Eyes: denies: eye pain ENT: denies: ear pain Respiratory: denies: cough, shortness of breath Cardiovascular: denies: chest pain, palpitations, edema, syncope Endocrine: no symptoms reported Gastrointestinal: denies: abdominal pain, nausea, vomiting, diarrhea Genitourinary: denies: urgency, dysuria Musculoskeletal: denies: back pain Skin: denies: rash, lesions Neurological: denies: headache, weakness, numbness Psychiatric: denies: anxiety, depression Hematological/Lymphatic: denies: easy bleeding, easy bruising ED Past Medical Hx - Past Medical History Hx COPD: Yes - Surgical History Hx Cholecystectomy: Yes Additional Surgical History: hernia repair . - Social History Smoking Status: Never Smoker Substance Use Type: Alcohol - Medications Home Medications: Home Medications Medication Instructions Recorded Confirmed Last Taken Type HYDROcodone/APAP 5-325 [[place] 1 each PO Q6H PRN #10 tablet 09/30/17 Unknown Rx 5-325 mg TAB] ED Physical Exam - General Limitations: No Limitations General appearance: alert, in no apparent distress - Head Head exam: Present: atraumatic, normocephalic, normal inspection - Eye Eye exam: Present: normal appearance, PERRL, EOMI Pupils: Present: normal accommodation - ENT ENT exam: Present: normal exam, normal orophraynx, mucous membranes moist - Neck Neck exam: Present: normal inspection, full ROM. Absent: tenderness - Respiratory Respiratory exam: Present: normal lung sounds bilaterally. Absent: respiratory distress, wheezes, rales, rhonchi, stridor - Cardiovascular Cardiovascular Exam: Present: regular rate, normal rhythm, normal heart sounds - GI/Abdominal GI/Abdominal exam: Present: soft, normal bowel sounds. Absent: distended, tenderness, guarding, rebound - Extremities Exam Extremities exam: Present: normal inspection, full ROM, normal capillary refill - Back Exam Back exam: Present: normal inspection, full ROM. Absent: tenderness - Neurological Exam Neurological exam: Present: alert, oriented X3, CN II-XII intact - Psychiatric Psychiatric exam: Present: normal affect, normal mood - Skin Skin exam: Present: warm, dry, intact, normal color. Absent: rash ED Course Vital Signs 10/30/17 10/30/17 10/30/17 18:23 22:59 23:27 Temperature 99.5 F 99.2 F Pulse Rate 73 78 63 Respiratory 18 14 23 Rate Blood Pressure 148/79 148/84 125/87 O2 Sat by Pulse 99 98 100 Oximetry 10/30/17 23:35 Temperature Pulse Rate Respiratory 18 Rate Blood Pressure O2 Sat by Pulse 99 Oximetry - Reevaluation(s) Reevaluation #1: 10/31/17 00:01 I called and spoke with Dr Gt Hooper and she confirmed that she wants to pig tail catheter removed and patient discharged home to follow up with her in her out patient clinic. ED Medical Decision Making - Medical Decision Making Surgical Drain Removal. Critical care attestation.: If time is entered above; I have spent that time in minutes in the direct care of this critically ill patient, excluding procedure time. ED Disposition Clinical Impression: Visit for suture removal Disposition: - TO HOME OR SELFCARE Is pt being admited?: No Does the pt Need Aspirin: No Condition: Stable Additional Instructions: Please follow up with Dr Hooper on Wednesday. Return to the ED if your condition worsens. Referrals: PRIMARY CARE, [Primary Care Provider] - 3-5 Days ONEAL HOOPER DO [Staff Physician] - 3-5 Days Time of Disposition: 00:08
== END 2017-10-31 00:34 | disposition home or self-care (01) ==
LOC: ED 18:10
DX: Z48.01 Encounter for change or removal of surgical wound dressing (principal); S31.114D Laceration without foreign body of abdominal wall, left lower quadrant without penetration into peritoneal cavity, subsequent encounter

== ENCOUNTER 2019-07-15 17:55 | Emergency (ER) | payer SELFPAY ==
[2019-07-15] MEDS ORDERED: TETRACAINE 0.5% OPHTH SOLN 4ML ONE (18:18)
--- NOTE | 2019-07-15 19:03 | Emergency Department Report ---
ED Eye Problem HPI - General Chief complaint: Eye Problems Stated complaint: RIGHT EYE SWOLLEN Time Seen by Provider: 07/15/19 18:34 Source: patient Mode of arrival: Ambulatory Limitations: No Limitations - History of Present Illness Initial comments: 49-year-old obese -[place] female with past medical history of asthma and COPD as well as cataract to her right eye presents emergency department complaining of pain and swelling which is been progressively worsening since this past with occasional pains radiate down the face towards her neck. You reports having swelling, around the eye and she woke this morning with more redness and tearing to the and mild mucus production chief complaint: eye pain, eye redness -: Gradual, days(s) (2) Onset Description: gradual Location: right eye Place: home If Injury: none Eye Symptoms: redness, pain - Related Data Home Medications Medication Instructions Recorded Confirmed Last Taken ALPRAZolam [Xanax] 1 mg PO BID 07/11/17 07/11/17 Unknown ARIPiprazole [Abilify] 5 mg PO BID 07/11/17 07/11/17 Unknown Furosemide [Lasix TAB] 20 mg PO QDAY 07/11/17 07/11/17 Unknown Omeprazole 40 mg PO QAM 07/11/17 07/11/17 Unknown buPROPion XL [Wellbutrin XL] 150 mg PO QAM 07/11/17 07/11/17 Unknown Previous Rx's Medication Instructions Recorded Last Taken Type Fluticasone/Salmeterol [Advair 1 puff IH BID #1 disk.w.dev 04/19/16 Unknown Rx Diskus 250-50 mcg] HYDROcodone/APAP 10-325 [[place] 1 each PO Q8HR PRN #20 tablet 08/11/17 Unknown Rx 10-325 mg TAB] HYDROcodone/APAP 5-325 [[place] 1 each PO Q6H PRN #10 tablet 09/30/17 Unknown Rx 5-325 mg TAB] Clindamycin [Clindamycin CAP] 150 mg PO Q6HR #40 capsule 07/15/19 Unknown Rx Tobramycin [Tobrex] 1 drop OP Q4H #1 bottle 07/15/19 Unknown Rx Allergies Allergy/AdvReac Type Severity Reaction Status Date / Time ibuprofen Allergy Shortness Verified 07/15/19 18:08 of Breath methylprednisolone Allergy Hives Verified 09/28/17 11:45 [From Solu-Medrol] methylprednisolone sodium Allergy Hives Verified 07/18/15 07:55 succinate [From Solu-Medrol] moxifloxacin [From Avelox] Allergy Hives Verified 09/28/17 11:45 moxifloxacin HCl Allergy Hives Verified 07/18/15 07:55 [From Avelox] sulfamethoxazole Allergy Shortness Verified 07/15/19 18:08 [From Bactrim] of Breath trimethoprim [From Bactrim] Allergy Shortness Verified 07/15/19 18:08 of Breath ED Review of Systems ROS: Stated complaint: RIGHT EYE SWOLLEN Other details as noted in HPI Comment: All other systems reviewed and negative ED Past Medical Hx - Past Medical History Previous Medical History?: Yes Hx Hypertension: No Hx Congestive Heart Failure: No Hx Diabetes: No Hx Sickle Cell Disease: No Hx Arthritis: (intubated x 4) Hx Seizures: No Hx Asthma: Yes Hx COPD: Yes Hx HIV: No Additional medical history: OBESITY. HERNIA X 2 - Surgical History Past Surgical History?: Yes Hx Cholecystectomy: Yes Additional Surgical History: hernia repair 2008/2017. - Social History Smoking Status: Never Smoker Substance Use Type: Alcohol - Medications Home Medications: Home Medications Medication Instructions Recorded Confirmed Last Taken Type Fluticasone/Salmeterol [Advair 1 puff IH BID #1 disk.w.dev 04/19/16 07/11/17 Unknown Rx Diskus 250-50 mcg] ALPRAZolam [Xanax] 1 mg PO BID 07/11/17 07/11/17 Unknown History ARIPiprazole [Abilify] 5 mg PO BID 07/11/17 07/11/17 Unknown History Furosemide [Lasix TAB] 20 mg PO QDAY 07/11/17 07/11/17 Unknown History Omeprazole 40 mg PO QAM 07/11/17 07/11/17 Unknown History buPROPion XL [Wellbutrin XL] 150 mg PO QAM 07/11/17 07/11/17 Unknown History HYDROcodone/APAP 10-325 [[place] 1 each PO Q8HR PRN #20 tablet 08/11/17 Unknown Rx 10-325 mg TAB] HYDROcodone/APAP 5-325 [[place] 1 each PO Q6H PRN #10 tablet 09/30/17 Unknown Rx 5-325 mg TAB] Clindamycin [Clindamycin CAP] 150 mg PO Q6HR #40 capsule 07/15/19 Unknown Rx Tobramycin [Tobrex] 1 drop OP Q4H #1 bottle 07/15/19 Unknown Rx ED Physical Exam - General Limitations: No Limitations General appearance: alert, in no apparent distress - Head Head exam: Present: atraumatic, normocephalic - Eye Eye exam: Present: normal appearance, PERRL, EOMI, conjunctival injection Pupils: Present: normal accommodation - Expanded Eye Exam Expanded Eyelids: Erythema: Right, Swelling: Right Pupils: Regular, Round: Bilateral (Cataract noted to the right), Reactive: Bilateral Sclera/Conjunctival: Injection: Right, Exudate: Right Posterior chamber: Normal Inspection: Left IOP measured with: Tonopen (18 right eye) - ENT ENT exam: Present: normal exam, mucous membranes moist, TM's normal bilaterally - Neck Neck exam: Present: normal inspection, full ROM. Absent: tenderness, lymphadenopathy - Respiratory Respiratory exam: Present: normal lung sounds bilaterally. Absent: respiratory distress, wheezes, rales, rhonchi, chest wall tenderness, accessory muscle use - Cardiovascular Cardiovascular Exam: Present: regular rate, normal rhythm. Absent: systolic murmur, diastolic murmur, rubs, gallop - GI/Abdominal GI/Abdominal exam: Present: soft, normal bowel sounds. Absent: distended, guarding, rebound, hyperactive bowel sounds, organomegaly - Extremities Exam Extremities exam: Present: normal inspection, full ROM, normal capillary refill - Back Exam Back exam: Present: normal inspection. Absent: CVA tenderness (R), CVA tenderness (L), paraspinal tenderness, vertebral tenderness - Neurological Exam Neurological exam: Present: alert, oriented X3, CN II-XII intact, normal gait - Psychiatric Psychiatric exam: Present: normal affect, normal mood. Absent: anxious, flat affect - Skin Skin exam: Present: warm, dry, intact, normal color. Absent: rash ED Course Vital Signs 07/15/19 07/15/19 07/15/19 18:04 20:00 20:06 Temperature 100.4 F H Pulse Rate 89 67 Respiratory 20 16 18 Rate Blood Pressure 143/97 Blood Pressure 124/74 [Left] O2 Sat by Pulse 97 100 Oximetry ED Medical Decision Making - Medical Decision Making 49-year-old female with right discomfort and some swelling is noted. Positive scleral injection no recent eye trauma suspected microtrauma. Negative Pepito sign. No significant photophobia. Дмитрий-Pen pressures within normal range. Given the history and examination of low suspicion for corneal abrasion or ulceration, globe rupture, retinal detachment, angle-closure glaucoma, formed foreign body. Uveitis, keratitis is also in the differential and her visual acuity has remained unchanged from that stated prescription were provided the patient stated she needs some medication that was free we were able to give her medications on the [employer] on the [employer] list she has been instructed to follow- up with ophthalmology for reevaluation Critical care attestation.: If time is entered above; I have spent that time in minutes in the direct care of this critically ill patient, excluding procedure time. ED Disposition Clinical Impression: Periorbital erythema, Conjunctivitis Disposition: DC-01 TO HOME OR SELFCARE Is pt being admited?: No Does the pt Need Aspirin: No Condition: Stable Instructions: Conjunctivitis (ED), Orbital Cellulitis (ED) Prescriptions: Clindamycin [Clindamycin CAP] 150 mg PO Q6HR #40 capsule Tobramycin [Tobrex] 1 drop OP Q4H #1 bottle Referrals: PRIMARY CAREMD [Primary Care Provider] - 3-5 Days FUENTES YBARRA MD [Staff Physician] - 2-3 Days [facility] [Provider Group] - 2-3 Days
[2019-07-15] MEDS ORDERED: HYDROcodone/ACETAMINOPHEN 5-325 MG TAB PO STA (19:25)
[2019-07-15 20:31] VITALS: BP 124/74
== END 2019-07-15 20:00 | disposition home or self-care (01) ==
LOC: ED 17:55
DX: H10.9 Unspecified conjunctivitis (principal); L03.213 Periorbital cellulitis; J44.9 Chronic obstructive pulmonary disease, unspecified; E66.9 Obesity, unspecified; Z88.6 Allergy status to analgesic agent; Z88.8 Allergy status to other drugs, medicaments and biological substances; Z68.41 Body mass index [BMI] 40.0-44.9, adult; Z79.899 Other long term (current) drug therapy; Z98.890 Other specified postprocedural states; Z90.49 Acquired absence of other specified parts of digestive tract
CPT/HCPCS: 99282

== ENCOUNTER 2019-08-19 23:34 | Emergency (ER) | payer SELFPAY ==
[2019-08-20 00:40] LABS: Basophils % (Auto) 0.5 % (0.0-1.8); Hematocrit 38.3 % (30.3-42.9); Hemoglobin 11.9 gm/dl (10.1-14.3); Lymphocytes % (Auto) 27.8 % (13.4-35.0); Mean Corpuscular HGB Conc 31 % (30-34); Mean Corpuscular Volume 75 fl (79-97); Monocytes # (Auto) 0.6 K/mm3 (0.0-0.8); Monocytes % (Auto) 7.8 % (0.0-7.3); Platelet Count 151 K/mm3 (140-440); Red Blood Count 5.07 M/mm3 (3.65-5.03); Red Cell Distribution Width 15.8 % (13.2-15.2)
[2019-08-20] MEDS ORDERED: ONDANSETRON 4 MG/2 ML INJ IV ONE ×2 (00:49→03:40)
[2019-08-20] MEDS ORDERED: SODIUM CHLORIDE 0.9% 1000 ML 1,000 ML IV ONE (00:49)
[2019-08-20] MEDS ORDERED: HYDROmorphone 1 MG/1 ML INJ IV ONE ×3 (00:56→05:29)
[2019-08-20] MEDS ORDERED: FAMOTIDINE 20 MG/2 ML INJ IV ONE (00:56)
[2019-08-20 00:58] LABS: Bilirubin,Urine NEG (Negative); Blood,Urine NEG (Negative); Color,Urine Amber (Yellow); Mucus,Urine 3+ /HPF; Protein,Urine <15 mg/dL mg/dL (Negative)
[2019-08-20] MEDS ORDERED: IPRATROPIUM/ALBUTEROL SULFATE 3 ML AMPUL.NEB IH ONE (00:58)
[2019-08-20 01:02] LABS: BUN/Creatinine Ratio 11; Blood Urea Nitrogen 8 mg/dL (7-17); Calcium 9.3 mg/dL (8.4-10.2); Hemolysis Index 4
[2019-08-20 01:47] LABS: Alanine Aminotransferase 10 units/L (7-56); Albumin 4.1 g/dL (3.9-5)
[2019-08-20 01:48] LABS: Bilirubin,Direct < 0.2 mg/dL (0-0.2)
--- NOTE | 2019-08-20 03:08 | Cat Scan Report ---
CT abdomen pelvis w con INDICATION: Ventral hernia, nausea, vomiting, pain TECHNIQUE: All CT scans at this location are performed using the following dose modulation technique: Automated exposure control. Helical slices were obtained through the abdomen and pelvis. 100 cc of Omnipaque 30 0 is administered. Oral contrast is administered. COMPARISON: CT scan dated 08/06/2019 FINDINGS: Abdomen: The no acute abnormality is seen in the lower chest. The liver, spleen, pancreas, adrenal glands, and kidneys are unchanged in appearance. There is nephro lithiasis on the right. There is no obstruction or inflammation. Large ventral hernia and eventration of the abdominal wall are again noted and appear unchanged from the recent CT. Pelvis: There is no obstruction or inflammation. There are no abnormal fluid collections. On review of bone windows, no acute osseous abnormalities are seen. IMPRESSION: 1. There is eventration of the anterior abdominal wall with a large ventral hernia containing bowel. This appears unchanged from 08/06/2019. There is no obstruction. There is no free air. Signer Name: Dennis Skinner MD Signed: 08/20/2019 3:04 AM Workstation Name: [id number]
--- NOTE | 2019-08-20 03:27 | Emergency Department Report ---
ED Abdominal Pain HPI - General Chief Complaint: Abdominal Pain Stated Complaint: ABDOMINAL PAIN Time Seen by Provider: 08/20/19 00:47 Source: patient, EMS Mode of arrival: Ambulatory Limitations: No Limitations - History of Present Illness Initial Comments: 49-year-old female with a past medical history of chronic abdominal pain, multiple abdominal hernias status post repair, COPD, asthma, and morbid obesity presents to the hospital complains of worsening abdominal pain since hospital discharge on 08/05 and nausea, vomiting, and diarrhea since 4 PM yesterday. Pain is worse at the right upper/mid abdomen area of chronic hernia. Patient has multiple abdominal hernias with repairs. Last hernia repair was in [address] Christensen Patient was here on the third with similar symptoms and had a CT abdomen pelvis performed. I discussed case with Dr. Christensen shortly after patient's evaluation and she states patient has been urged to go to [place] given that she has recurrent hernias and is a complex case. Patient denies fever. Pain is not alleviated with Percocet 5/325 at home which was prescribed during her recent visit. Pt did not fill the prescribed zofran. Patient has been informed to go to pain management in the past Severity scale (0 -10): 10 - Related Data Home Medications Medication Instructions Recorded Confirmed Last Taken ALPRAZolam [Xanax] 1 mg PO BID 07/11/17 07/11/17 Unknown ARIPiprazole [Abilify] 5 mg PO BID 07/11/17 07/11/17 Unknown Furosemide [Lasix TAB] 20 mg PO QDAY 07/11/17 07/11/17 Unknown Omeprazole 40 mg PO QAM 07/11/17 07/11/17 Unknown buPROPion XL [Wellbutrin XL] 150 mg PO QAM 07/11/17 07/11/17 Unknown Previous Rx's Medication Instructions Recorded Last Taken Type Fluticasone/Salmeterol [Advair 1 puff IH BID #1 disk.w.dev 04/19/16 Unknown Rx Diskus 250-50 mcg] HYDROcodone/APAP 10-325 [[place] 1 each PO Q8HR PRN #20 tablet 08/11/17 Unknown Rx 10-325 mg TAB] HYDROcodone/APAP 5-325 [[place] 1 each PO Q6H PRN #10 tablet 09/30/17 Unknown Rx 5-325 mg TAB] Clindamycin [Clindamycin CAP] 150 mg PO Q6HR #40 capsule 07/15/19 Unknown Rx Tobramycin [Tobrex] 1 drop OP Q4H #1 bottle 07/15/19 Unknown Rx Ondansetron [Zofran Odt] 4 mg PO Q8HR PRN #20 tab.rapdis 08/06/19 Unknown Rx oxyCODONE /ACETAMINOPHEN [Percocet 1 tab PO Q6HR PRN #7 tablet 08/06/19 Unknown Rx 5/325] Fluconazole (Nf) [Diflucan TAB] 150 mg PO ONCE #1 tablet 08/20/19 Unknown Rx Ondansetron [Zofran Odt] 4 mg PO Q8HR PRN #20 tab.rapdis 08/20/19 Unknown Rx Oxycodone HCl/Acetaminophen 1 each PO Q6HR PRN #15 tablet 08/20/19 Unknown Rx [Percocet 10/325 mg] Allergies Allergy/AdvReac Type Severity Reaction Status Date / Time ibuprofen Allergy Shortness Verified 07/15/19 18:08 of Breath methylprednisolone Allergy Hives Verified 09/28/17 11:45 [From Solu-Medrol] methylprednisolone sodium Allergy Hives Verified 07/18/15 07:55 succinate [From Solu-Medrol] moxifloxacin [From Avelox] Allergy Hives Verified 09/28/17 11:45 moxifloxacin HCl Allergy Hives Verified 07/18/15 07:55 [From Avelox] sulfamethoxazole Allergy Shortness Verified 07/15/19 18:08 [From Bactrim] of Breath trimethoprim [From Bactrim] Allergy Shortness Verified 07/15/19 18:08 of Breath ED Review of Systems ROS: Stated complaint: ABDOMINAL PAIN Other details as noted in HPI Comment: All other systems reviewed and negative ED Past Medical Hx - Past Medical History Hx Hypertension: No Hx Congestive Heart Failure: No Hx Diabetes: No Hx Sickle Cell Disease: No Hx Arthritis: (intubated x 4) Hx Seizures: No Hx Asthma: Yes Hx COPD: Yes (intubated x 4) Hx HIV: No Additional medical history: OBESITY. HERNIA X 2. SANDRO - Surgical History Hx Cholecystectomy: Yes Additional Surgical History: hernia repair . - Social History Smoking Status: Never Smoker Substance Use Type: Alcohol - Medications Home Medications: Home Medications Medication Instructions Recorded Confirmed Last Taken Type Fluticasone/Salmeterol [Advair 1 puff IH BID #1 disk.w.dev 04/19/16 07/11/17 Unknown Rx Diskus 250-50 mcg] ALPRAZolam [Xanax] 1 mg PO BID 07/11/17 07/11/17 Unknown History ARIPiprazole [Abilify] 5 mg PO BID 07/11/17 07/11/17 Unknown History Furosemide [Lasix TAB] 20 mg PO QDAY 07/11/17 07/11/17 Unknown History Omeprazole 40 mg PO QAM 07/11/17 07/11/17 Unknown History buPROPion XL [Wellbutrin XL] 150 mg PO QAM 07/11/17 07/11/17 Unknown History HYDROcodone/APAP 10-325 [[place] 1 each PO Q8HR PRN #20 tablet 08/11/17 Unknown Rx 10-325 mg TAB] HYDROcodone/APAP 5-325 [[place] 1 each PO Q6H PRN #10 tablet 09/30/17 Unknown Rx 5-325 mg TAB] Clindamycin [Clindamycin CAP] 150 mg PO Q6HR #40 capsule 07/15/19 Unknown Rx Tobramycin [Tobrex] 1 drop OP Q4H #1 bottle 07/15/19 Unknown Rx Ondansetron [Zofran Odt] 4 mg PO Q8HR PRN #20 tab.rapdis 08/06/19 Unknown Rx oxyCODONE /ACETAMINOPHEN [Percocet 1 tab PO Q6HR PRN #7 tablet 08/06/19 Unknown Rx 5/325] Fluconazole (Nf) [Diflucan TAB] 150 mg PO ONCE #1 tablet 08/20/19 Unknown Rx Ondansetron [Zofran Odt] 4 mg PO Q8HR PRN #20 tab.rapdis 08/20/19 Unknown Rx Oxycodone HCl/Acetaminophen 1 each PO Q6HR PRN #15 tablet 08/20/19 Unknown Rx [Percocet 10/325 mg] ED Physical Exam - General Limitations: No Limitations - Other Other exam information: General: Moderate distress secondary to pain Head: Atraumatic Eyes: normal appearance ENT: Moist mucous membranes Neck: Normal appearance, no midline tenderness Chest: Bilateral wheezing CV: Regular rate and rhythm Abdomen: Soft, normal bowel sounds multiple abdominal surgeries and multiple ventral wall hernias. Tenderness to the right abdomen at area of herniation. Patient states that the hernia is bigger than when she presented on September 01 Back: Normal inspection Extremity: Normal inspection, full range of motion Neuro: Alert O x 3, no facial asymmetry, speech clear, no gross motor sensory deficit Psych: Appropriate behavior Skin: No rash ED Course Vital Signs 08/19/19 08/20/19 08/20/19 23:40 03:31 03:33 Temperature 99.2 F 98.2 F Pulse Rate 98 H 94 H Respiratory 18 Rate Blood Pressure 165/100 124/98 O2 Sat by Pulse 95 100 Oximetry - Consultations Consultation #1: 08/20/19 05:55 case we discussed with Dr. Christensen. This patient does not have any evidence of obstruction or acute surgical pathology she would not be a candidate for emergent transfer to [place]. She again advises outpatient follow-up with [place] surgery. ED Medical Decision Making - Lab Data Result diagrams: 08/20/19 00:06 08/20/19 00:06 Lab Results 08/20/19 08/20/19 08/20/19 Range/Units 00:06 00:06 00:50 WBC 7.3 (4.5-11.0) K/mm3 RBC 5.07 H (3.65-5.03) M/mm3 Hgb 11.9 (10.1-14.3) gm/dl Hct 38.3 (30.3-42.9) % MCV 75 L (79-97) fl MCH 23 L (28-32) pg MCHC 31 (30-34) % RDW 15.8 H (13.2-15.2) % Plt Count 151 (140-440) K/mm3 Lymph % (Auto) 27.8 (13.4-35.0) % [place] % (Auto) 7.8 H (0.0-7.3) % Eos % (Auto) 14.0 H (0.0-4.3) % Baso % (Auto) 0.5 (0.0-1.8) % Lymph # 2.0 (1.2-5.4) K/mm3 [place] # 0.6 (0.0-0.8) K/mm3 Eos # 1.0 H (0.0-0.4) K/mm3 Baso # 0.0 (0.0-0.1) K/mm3 Seg Neutrophils % 49.9 (40.0-70.0) % Seg Neutrophils # 3.7 (1.8-7.7) K/mm3 Sodium 140 (137-145) mmol/L Potassium 3.8 (3.6-5.0) mmol/L Chloride 99.3 (98-107) mmol/L Carbon Dioxide 28 (22-30) mmol/L Anion Gap 17 mmol/L BUN 8 (7-17) mg/dL Creatinine 0.7 (0.7-1.2) mg/dL Estimated GFR > 60 ml/min BUN/Creatinine Ratio 11 % Glucose 168 H (65-100) mg/dL Calcium 9.3 (8.4-10.2) mg/dL Total Bilirubin (0.1-1.2) mg/dL Direct Bilirubin (0-0.2) mg/dL Indirect Bilirubin mg/dL AST (5-40) units/L ALT (7-56) units/L Alkaline Phosphatase (35-129) units/L Total Protein (6.3-8.2) g/dL Albumin (3.9-5) g/dL Albumin/Globulin Ratio % Lipase (13-60) units/L HCG, Qual (Negative) Urine Color [place] (Yellow) Urine Turbidity Cloudy (Clear) Urine pH 5.0 (5.0-7.0) Ur Specific [place] 1.027 (1.003-1.030) Urine Protein <15 mg/dl (Negative) mg/dL Urine Glucose (UA) Neg (Negative) mg/dL Urine Ketones Neg (Negative) mg/dL Urine Blood Neg (Negative) Urine Nitrite Neg (Negative) Urine Bilirubin Neg (Negative) Urine Urobilinogen 2.0 (<2.0) mg/dL Ur Leukocyte Esterase Mod (Negative) Urine WBC (Auto) 16.0 H (0.0-6.0) /HPF Urine RBC (Auto) 8.0 (0.0-6.0) /HPF U Epithel Cells (Auto) 70.0 H (0-13.0) /HPF Urine Mucus 3+ /HPF Urine Yeast (Budding) Few /HPF 08/20/19 08/20/19 Range/Units 01:22 01:22 WBC (4.5-11.0) K/mm3 RBC (3.65-5.03) M/mm3 Hgb (10.1-14.3) gm/dl Hct (30.3-42.9) % MCV (79-97) fl MCH (28-32) pg MCHC (30-34) % RDW (13.2-15.2) % Plt Count (140-440) K/mm3 Lymph % (Auto) (13.4-35.0) % [place] % (Auto) (0.0-7.3) % Eos % (Auto) (0.0-4.3) % Baso % (Auto) (0.0-1.8) % Lymph # (1.2-5.4) K/mm3 [place] # (0.0-0.8) K/mm3 Eos # (0.0-0.4) K/mm3 Baso # (0.0-0.1) K/mm3 Seg Neutrophils % (40.0-70.0) % Seg Neutrophils # (1.8-7.7) K/mm3 Sodium (137-145) mmol/L Potassium (3.6-5.0) mmol/L Chloride (98-107) mmol/L Carbon Dioxide (22-30) mmol/L Anion Gap mmol/L BUN (7-17) mg/dL Creatinine (0.7-1.2) mg/dL Estimated GFR ml/min BUN/Creatinine Ratio % Glucose (65-100) mg/dL Calcium (8.4-10.2) mg/dL Total Bilirubin 0.20 (0.1-1.2) mg/dL Direct Bilirubin < 0.2 (0-0.2) mg/dL Indirect Bilirubin 0.0 mg/dL AST 14 (5-40) units/L ALT 10 (7-56) units/L Alkaline Phosphatase 58 (35-129) units/L Total Protein 7.4 (6.3-8.2) g/dL Albumin 4.1 (3.9-5) g/dL Albumin/Globulin Ratio 1.2 % Lipase 17 (13-60) units/L HCG, Qual Negative (Negative) Urine Color (Yellow) Urine Turbidity (Clear) Urine pH (5.0-7.0) Ur Specific [place] (1.003-1.030) Urine Protein (Negative) mg/dL Urine Glucose (UA) (Negative) mg/dL Urine Ketones (Negative) mg/dL Urine Blood (Negative) Urine Nitrite (Negative) Urine Bilirubin (Negative) Urine Urobilinogen (<2.0) mg/dL Ur Leukocyte Esterase (Negative) Urine WBC (Auto) (0.0-6.0) /HPF Urine RBC (Auto) (0.0-6.0) /HPF U Epithel Cells (Auto) (0-13.0) /HPF Urine Mucus /HPF Urine Yeast (Budding) /HPF - Radiology Data Radiology results: report reviewed CT abdomen pelvis w con INDICATION: Ventral hernia, nausea, vomiting, pain TECHNIQUE: All CT scans at this location are performed using the following dose modulation technique: Automated exposure control. Helical slices were obtained through the abdomen and pelvis. 100 cc of Omnipaque 300 is administered. Oral contrast is administered. COMPARISON: CT scan dated 08/06/2019 FINDINGS: Abdomen: The no acute abnormality is seen in the lower chest. The liver, spleen, pancreas, adrenal glands, and kidneys are unchanged in appearance. There is nephrolithiasis on the right. There is no obstruction or inflammation. Large ventral hernia and eventration of the abdominal wall are again noted and appear unchanged from the recent CT. Pelvis: There is no obstruction or inflammation. There are no abnormal fluid collections. On review of bone windows, no acute osseous abnormalities are seen. IMPRESSION: 1. There is eventration of the anterior abdominal wall with a large ventral hernia containing bowel. This appears unchanged from 08/06/2019. There is no obstruction. There is no free air. - Medical Decision Making Patient has recurrent chronic abdominal pain related to ventral hernia. CT abdomen pelvis today performed with p.o. and IV contrast and does not show any signs of obstruction. BP improved with pain reduction. Case discussed with Dr. Christensen who once again advised patient to follow-up with him as outpatient. She would not be a candidate for emergent transfer at this time given that she does not have any acute indication for surgery. Patient will need to be compliant and follow-up with them as outpatient. Patient will be encouraged to fill her Zofran prescription and provided additional Zofran as needed. She will also be prescribed additional Percocet tablets I was unable to pull up any recently filled prescriptions on the [place] prescription monitoring site. Last prescription filled on the site was tramadol in May 2018. Critical Care Time: No Critical care attestation.: If time is entered above; I have spent that time in minutes in the direct care of this critically ill patient, excluding procedure time. ED Disposition Clinical Impression: Ventral hernia, recurrent, Nausea and vomiting, Yeast vaginitis Disposition: TO HOME OR SELFCARE Is pt being admited?: No Condition: Stable Instructions: Vulvovaginal Candidiasis (ED), Ventral Hernia (ED) Additional Instructions: Take the medication as prescribed. Follow-up with your doctor or doctor/clinic provided. Return if symptoms worsen as indicated by your discharge instructions. Prescriptions: Fluconazole (Nf) [Diflucan TAB] 150 mg PO ONCE #1 tablet Oxycodone HCl/Acetaminophen [Percocet 10/325 mg] 1 each PO Q6HR PRN #15 tablet PRN Reason: Pain Ondansetron [Zofran Odt] 4 mg PO Q8HR PRN #20 tab.rapdis PRN Reason: Nausea And Vomiting Referrals: PRIMARY CAREMD [Primary Care Provider] - 3-5 Days [facility] md antonia [Other] - 3-5 Days (call the number provided to follow up with the [facility]) Time of Disposition: 06:07
[2019-08-20 03:33] VITALS: BP 124/98
[2019-08-20] MEDS ORDERED: diphenhydrAMINE 50 MG/ML VIAL IV ONE (03:44)
[2019-08-20] MEDS ORDERED: METOCLOPRAMIDE 10 MG/2 ML INJ IV ONE (03:44)
== END 2019-08-20 06:39 | disposition home or self-care (01) ==
LOC: ED 23:34
DX: N76.0 Acute vaginitis (principal); B96.89 Other specified bacterial agents as the cause of diseases classified elsewhere; K43.2 Incisional hernia without obstruction or gangrene
CPT/HCPCS: 36415; 74177; 80048; 80076; 81001; 83690; 84703; 85025; 87086; 96361; 96374; 96375; 96376; 99284; J1170; J1200; J2405; J2765; J7030; Q9967

== ENCOUNTER 2019-08-30 23:19 | Emergency (ER) | payer SELFPAY ==
--- NOTE | 2019-08-31 00:19 | Cat Scan Report ---
Examination: CT of the head without contrast Clinical information: Head trauma. Food can fell from shelf and hit patient on the head. Comparison: No relevant prior studies are available for comparison. Technical: Multiple axial CT images of the head were obtained without intravenous contrast. Sagittal and coronal reformats were obtained. All CTs at this facility utilize dose reduction techniques inc luding automated exposure control, iterative reconstruction and weight based dosing when appropriate to reduce patient radiation dose to as low as reasonable achievable. Findings: There is no CT evidence of acute intracranial hemorrhage or large territorial infarct area the ventricular system appears normal in size. No abnormal extra-axial fluid collections are identifi ed. Evaluation of bony structures demonstrates no evidence of acute bony abnormality. There is partial mu cosal thickening of the ethmoid air cells and right maxillary sinus. Impression: 1. No CT evidence of acute intracranial process. Signer Name: Rosalia Myers MD Signed: 08/31/2019 12:15 AM Workstation Name: [id number]
--- NOTE | 2019-08-31 00:31 | Emergency Department Report ---
ED Head Trauma HPI - General Chief complaint: Head Injury Stated complaint: HEAD PAIN, CAN FELL OFF SHELF Time Seen by Provider: 08/31/19 00:29 Source: patient Mode of arrival: Ambulatory Limitations: No Limitations - History of Present Illness Initial comments: 49-year-old -[place] female presents to the emergency room stating that I can fell from her cabinet and hit her on the her forehead. Patient denies any loss of consciousness but states that she feels lightheaded and dizzy. Patient has a past medical history of COPD arthritis obesity. MD Complaint: head injury Location: frontal Loss of Consciousness: unsure Previous Trauma to this Area: No Place: home Radiation: none Severity: severe Severity scale (0 -10): 10 Quality: aching Consistency: constant Associated Symptoms: vision changes. denies: nausea, vomiting, vertigo, syncope, numbness, weakness - Related Data Home Medications Medication Instructions Recorded Confirmed Last Taken ALPRAZolam [Xanax] 1 mg PO BID 07/11/17 07/11/17 Unknown ARIPiprazole [Abilify] 5 mg PO BID 07/11/17 07/11/17 Unknown Furosemide [Lasix TAB] 20 mg PO QDAY 07/11/17 07/11/17 Unknown Omeprazole 40 mg PO QAM 07/11/17 07/11/17 Unknown buPROPion XL [Wellbutrin XL] 150 mg PO QAM 07/11/17 07/11/17 Unknown Previous Rx's Medication Instructions Recorded Last Taken Type Fluticasone/Salmeterol [Advair 1 puff IH BID #1 disk.w.dev 04/19/16 Unknown Rx Diskus 250-50 mcg] HYDROcodone/APAP 10-325 [[place] 1 each PO Q8HR PRN #20 tablet 08/11/17 Unknown Rx 10-325 mg TAB] HYDROcodone/APAP 5-325 [[place] 1 each PO Q6H PRN #10 tablet 09/30/17 Unknown Rx 5-325 mg TAB] Clindamycin [Clindamycin CAP] 150 mg PO Q6HR #40 capsule 07/15/19 Unknown Rx Tobramycin [Tobrex] 1 drop OP Q4H #1 bottle 07/15/19 Unknown Rx Ondansetron [Zofran Odt] 4 mg PO Q8HR PRN #20 tab.rapdis 08/06/19 Unknown Rx oxyCODONE /ACETAMINOPHEN [Percocet 1 tab PO Q6HR PRN #7 tablet 08/06/19 Unknown Rx 5/325] Fluconazole (Nf) [Diflucan TAB] 150 mg PO ONCE #1 tablet 08/20/19 Unknown Rx Ondansetron [Zofran Odt] 4 mg PO Q8HR PRN #20 tab.rapdis 08/20/19 Unknown Rx Oxycodone HCl/Acetaminophen 1 each PO Q6HR PRN #15 tablet 08/20/19 Unknown Rx [Percocet 10/325 mg] Allergies/Adverse reactions: Allergies Allergy/AdvReac Type Severity Reaction Status Date / Time ibuprofen Allergy Shortness Verified 07/15/19 18:08 of Breath methylprednisolone Allergy Hives Verified 09/28/17 11:45 [From Solu-Medrol] methylprednisolone sodium Allergy Hives Verified 07/18/15 07:55 succinate [From Solu-Medrol] moxifloxacin [From Avelox] Allergy Hives Verified 09/28/17 11:45 moxifloxacin HCl Allergy Hives Verified 07/18/15 07:55 [From Avelox] sulfamethoxazole Allergy Shortness Verified 07/15/19 18:08 [From Bactrim] of Breath trimethoprim [From Bactrim] Allergy Shortness Verified 07/15/19 18:08 of Breath ED Review of Systems ROS: Stated complaint: HEAD PAIN, CAN FELL OFF SHELF Other details as noted in HPI ED Past Medical Hx - Past Medical History Previous Medical History?: Yes Hx Hypertension: No Hx Congestive Heart Failure: No Hx Diabetes: No Hx Sickle Cell Disease: No Hx Arthritis: (intubated x 4) Hx Seizures: No Hx Asthma: Yes Hx COPD: Yes (intubated x 4) Hx HIV: No Additional medical history: OBESITY. HERNIA X 2. SANDRO - Surgical History Past Surgical History?: Yes Hx Cholecystectomy: Yes Additional Surgical History: hernia repair . - Social History Smoking Status: Never Smoker Substance Use Type: Alcohol, Marijuana - Medications Home Medications: Home Medications Medication Instructions Recorded Confirmed Last Taken Type Fluticasone/Salmeterol [Advair 1 puff IH BID #1 disk.w.dev 04/19/16 07/11/17 Unknown Rx Diskus 250-50 mcg] ALPRAZolam [Xanax] 1 mg PO BID 07/11/17 07/11/17 Unknown History ARIPiprazole [Abilify] 5 mg PO BID 07/11/17 07/11/17 Unknown History Furosemide [Lasix TAB] 20 mg PO QDAY 07/11/17 07/11/17 Unknown History Omeprazole 40 mg PO QAM 07/11/17 07/11/17 Unknown History buPROPion XL [Wellbutrin XL] 150 mg PO QAM 07/11/17 07/11/17 Unknown History HYDROcodone/APAP 10-325 [[place] 1 each PO Q8HR PRN #20 tablet 08/11/17 Unknown Rx 10-325 mg TAB] HYDROcodone/APAP 5-325 [[place] 1 each PO Q6H PRN #10 tablet 09/30/17 Unknown Rx 5-325 mg TAB] Clindamycin [Clindamycin CAP] 150 mg PO Q6HR #40 capsule 07/15/19 Unknown Rx Tobramycin [Tobrex] 1 drop OP Q4H #1 bottle 07/15/19 Unknown Rx Ondansetron [Zofran Odt] 4 mg PO Q8HR PRN #20 tab.rapdis 08/06/19 Unknown Rx oxyCODONE /ACETAMINOPHEN [Percocet 1 tab PO Q6HR PRN #7 tablet 08/06/19 Unknown Rx 5/325] Fluconazole (Nf) [Diflucan TAB] 150 mg PO ONCE #1 tablet 08/20/19 Unknown Rx Ondansetron [Zofran Odt] 4 mg PO Q8HR PRN #20 tab.rapdis 08/20/19 Unknown Rx Oxycodone HCl/Acetaminophen 1 each PO Q6HR PRN #15 tablet 08/20/19 Unknown Rx [Percocet 10/325 mg] ED Physical Exam - General Limitations: No Limitations General appearance: alert, in no apparent distress - Head Head exam: Present: atraumatic, normocephalic - Eye Eye exam: Present: normal appearance - ENT ENT exam: Present: mucous membranes moist - Neck Neck exam: Present: normal inspection, full ROM - Respiratory Respiratory exam: Present: normal lung sounds bilaterally. Absent: respiratory distress - Cardiovascular Cardiovascular Exam: Present: regular rate, normal rhythm. Absent: systolic murmur, diastolic murmur, rubs, gallop - Neurological Exam Neurological exam: Present: alert, oriented X3 - Expanded Neurological Exam Expanded Cranial nerves: EOM's Intact: Normal, Gag Reflex: Normal, Tongue Deviation: Normal, Nystagmus: Normal, Facial Sensation: Normal, Facial Palsy with Forehead Movement: Normal, Facial Palsy without Forehead Movement: Normal Cerebellar function: Finger to Nose: Normal, Heel to Hussein: Normal, Romberg: Normal Upper motor neuron: Kris Neglect: Normal, Pronator Drift: Normal, Sensory Extinction: Normal Sensory exam: Upper Extremity Light Touch: Normal, Upper Extremity Pin Prick: Normal, Upper Extremity Temperature: Normal, UE 2 Point Discrimination: Normal, Lower Extremity Light Touch: Normal, Lower Extremity Pin Prick: Normal, Lower Extremity Temperature: Normal, LE 2 Point Discrimination: Normal Motor strength exam: RUE: 4, LUE: 4, RLE: 4, LLE: 4 Best Eye Response (Burak): (4) open spontaneously Best Motor Response (Burak): (6) obeys commands Best Verbal Response (Burak): (5) oriented Burak Total: 15 - Psychiatric Psychiatric exam: Present: normal affect, normal mood - Skin Skin exam: Present: warm, dry, intact, normal color. Absent: rash ED Course Vital Signs 08/30/19 23:24 Temperature 99.6 F Pulse Rate 93 H Respiratory 18 Rate Blood Pressure 144/93 O2 Sat by Pulse 96 Oximetry - Radiology Data Radiology results: report reviewed Referring Physician:MICHAEL RODRIGUEZPatient Name:ZORAIDA VALLEPatient ID:[id number] of :[id number]:FemaleAccession:[id number] Date:[id number] Status:Finalized Findings [facility] [address] [place] [address] Cat Scan Report Signed Patient: ZORAIDA VALLE MR#: [id number] : 1970 Acct:[id number] Age/Sex: 49 / F ADM Date: 08/30/19 Loc: ED Attending Dr: Ordering Physician: MICHAEL RODRIGUEZ MD Date of Service: 08/30/19 Procedure(s): CT head/brain wo con Accession Number(s): [id number] cc: ED MD MICHAEL Examination: CT of the head without contrast Clinical information: Head trauma. Food can fell from shelf and hit patient on the head. Comparison: No relevant prior studies are available for comparison. Technical: Multiple axial CT images of the head were obtained without intravenous contrast. Sagittal and coronal reformats were obtained. All CTs at this facility utilize dose reduction techniques including automated exposure control, iterative reconstruction and weight based dosing when appropriate to reduce patient radiation dose to as low as reasonable achievable. Findings: There is no CT evidence of acute intracranial hemorrhage or large territorial infarct area the ventricular system appears normal in size. No abnormal extra-axial fluid collections are identified. Evaluation of bony structures demonstrates no evidence of acute bony abnormality. There is partial mucosal thickening of the ethmoid air cells and right maxillary sinus. Impression: 1. No CT evidence of acute intracranial process. Signer Name: Rosalia Myers MD Signed: 08/31/2019 12:15 AM Workstation Name: [id number] Transcribed By: PRIYANKA Dictated By: Rosalia Myers MD Electronically Authenticated By: Rosalia Myers MD Signed Date/Time: 08/31/19 0015 DD/ 001 TD/TT: - Medical Decision Making 49-year-old -[place] female presents to the emergency room stating that I can fell from her cabinet and hit her on the her forehead. Patient denies any loss of consciousness but states that she feels lightheaded and dizzy. Patient has a past medical history of COPD arthritis obesity. CT of head is negative for any acute abnormalities. Patient reports that she has pain offered her Tylenol she says that she took that prior to arrival. Patient be discharged home instructed to use her chronic medications and take Tylenol for pain. Critical care attestation.: If time is entered above; I have spent that time in minutes in the direct care of this critically ill patient, excluding procedure time. ED Disposition Clinical Impression: Mild closed head injury Disposition: DC-01 TO HOME OR SELFCARE Is pt being admited?: No Does the pt Need Aspirin: No Condition: Stable Instructions: Minor Head Injury (ED) Additional Instructions: CT of your head is negative. Continue with your chronic medications Tylenol for pain management. Referrals: PRIMARY CAREMD [Primary Care Provider] - 3-5 Days NORMAN VIEYRA MD [Staff Physician] - 3-5 Days
[2019-08-31 01:58] VITALS: BP 146/87
== END 2019-08-31 00:55 | disposition home or self-care (01) ==
LOC: ED 23:19
DX: S09.90XA Unspecified injury of head, initial encounter (principal); J44.9 Chronic obstructive pulmonary disease, unspecified; E66.9 Obesity, unspecified; F12.90 Cannabis use, unspecified, uncomplicated; Z79.899 Other long term (current) drug therapy; Z88.6 Allergy status to analgesic agent; Z68.41 Body mass index [BMI] 40.0-44.9, adult; Z88.8 Allergy status to other drugs, medicaments and biological substances; Z90.49 Acquired absence of other specified parts of digestive tract; Z98.890 Other specified postprocedural states; W18.39XA Other fall on same level, initial encounter; Y93.89 Activity, other specified; Y92.89 Other specified places as the place of occurrence of the external cause; Y99.8 Other external cause status
CPT/HCPCS: 70450

== ENCOUNTER 2019-09-16 00:17 | Emergency (ER) | payer SELFPAY ==
[2019-09-16] MEDS ORDERED: dexAMETHasone 20 MG/5 ML VIAL ONE (00:52)
[2019-09-16] MEDS ORDERED: IPRATROPIUM 0.02% NEBU 2.5 ML IH ONE ×2 (00:52)
[2019-09-16] MEDS ORDERED: dexAMETHasone 20 MG/5 ML VIAL IV ONE (00:52)
[2019-09-16] MEDS ORDERED: ALBUTEROL 2.5 MG/3 ML NEBU IH ONE ×2 (00:52)
[2019-09-16] MEDS ORDERED: ACETAMINOPHEN 500 MG TAB PO ONE (00:53)
--- NOTE | 2019-09-16 01:16 | XRay Report ---
CHEST 1 VIEW 09/16/2019 12:10 AM INDICATION / CLINICAL INFORMATION: sob. COMPARISON: Chest x-ray 09/28/2017 FINDINGS: SUPPORT DEVICES: None. HEART / MEDIASTINUM: No significant abnormality. LUNGS / PLEURA: No significant pulmonary or pleural abnormality. No pneumothorax. ADDITIONAL FINDINGS: No significant additional findings. IMPRESSION: 1. No acute findings. Signer Name: Fernando Zhou MD Signed: 09/16/2019 1:12 AM Workstation Name: [email or web address]
[2019-09-16] MEDS ORDERED: MAGNESIUM SULFATE 2 GM/50 ML BAG IV ONE (01:20)
[2019-09-16] MEDS ORDERED: KETOROLAC 30 MG/1 ML INJ ONE (01:38)
[2019-09-16] MEDS ORDERED: KETOROLAC 30 MG/1 ML INJ IV ONE (01:42)
--- NOTE | 2019-09-16 03:30 | Emergency Department Report ---
ED Shortness of Breath HPI - General Chief Complaint: Dyspnea/Respdistress Stated Complaint: ELIF Time Seen by Provider: 09/16/19 00:27 Source: EMS Mode of arrival: Stretcher Limitations: No Limitations - History of Present Illness Initial Comments: 49 yo F w/ COPD on 2L O2 at home, presents to ED with SOB, wheezing x 3 days. Pt reports cough, congestion, body aches. Denies loss of smell or taste. No known contact w/ anyone who has tested positive for COVID-19. MD Complaint: shortness of breath -: days(s) (3) Consistency: constant Improves With: nothing, bronchodilators Worsens With: exertion Known History Of: COPD Associated Symptoms: cough Treatments Prior to Arrival: bronchodilator - Related Data Home Oxygen Therapy: Yes Home Oxygen Amount: 2 Liters Home Medications Medication Instructions Recorded Confirmed Last Taken ALPRAZolam [Xanax] 1 mg PO BID 07/11/17 07/11/17 Unknown ARIPiprazole [Abilify] 5 mg PO BID 07/11/17 07/11/17 Unknown Furosemide [Lasix TAB] 20 mg PO QDAY 07/11/17 07/11/17 Unknown Omeprazole 40 mg PO QAM 07/11/17 07/11/17 Unknown buPROPion XL [Wellbutrin XL] 150 mg PO QAM 07/11/17 07/11/17 Unknown Previous Rx's Medication Instructions Recorded Last Taken Type Fluticasone/Salmeterol [Advair 1 puff IH BID #1 disk.w.dev 04/19/16 Unknown Rx Diskus 250-50 mcg] HYDROcodone/APAP 10-325 [[place] 1 each PO Q8HR PRN #20 tablet 08/11/17 Unknown Rx 10-325 mg TAB] HYDROcodone/APAP 5-325 [[place] 1 each PO Q6H PRN #10 tablet 09/30/17 Unknown Rx 5-325 mg TAB] Clindamycin [Clindamycin CAP] 150 mg PO Q6HR #40 capsule 07/15/19 Unknown Rx Tobramycin [Tobrex] 1 drop OP Q4H #1 bottle 07/15/19 Unknown Rx Ondansetron [Zofran Odt] 4 mg PO Q8HR PRN #20 tab.rapdis 08/06/19 Unknown Rx oxyCODONE /ACETAMINOPHEN [Percocet 1 tab PO Q6HR PRN #7 tablet 08/06/19 Unknown Rx 5/325] Fluconazole (Nf) [Diflucan TAB] 150 mg PO ONCE #1 tablet 08/20/19 Unknown Rx Ondansetron [Zofran Odt] 4 mg PO Q8HR PRN #20 tab.rapdis 08/20/19 Unknown Rx Oxycodone HCl/Acetaminophen 1 each PO Q6HR PRN #15 tablet 08/20/19 Unknown Rx [Percocet 10/325 mg] Benzonatate [Tessalon Perles] 100 mg PO Q8HR PRN #20 capsule 09/16/19 Unknown Rx traMADoL [Ultram] 50 mg PO Q6HR PRN #7 tablet 09/16/19 Unknown Rx Allergies Allergy/AdvReac Type Severity Reaction Status Date / Time ibuprofen Allergy Shortness Verified 07/15/19 18:08 of Breath methylprednisolone Allergy Hives Verified 09/28/17 11:45 [From Solu-Medrol] methylprednisolone sodium Allergy Hives Verified 07/18/15 07:55 succinate [From Solu-Medrol] moxifloxacin [From Avelox] Allergy Hives Verified 09/28/17 11:45 moxifloxacin HCl Allergy Hives Verified 07/18/15 07:55 [From Avelox] sulfamethoxazole Allergy Shortness Verified 07/15/19 18:08 [From Bactrim] of Breath trimethoprim [From Bactrim] Allergy Shortness Verified 07/15/19 18:08 of Breath ED Review of Systems ROS: Stated complaint: ELIF Other details as noted in HPI Comment: All other systems reviewed and negative Constitutional: fever Respiratory: cough, shortness of breath, wheezing Musculoskeletal: myalgia ED Past Medical Hx - Past Medical History Hx Hypertension: No Hx Congestive Heart Failure: No Hx Diabetes: No Hx Sickle Cell Disease: No Hx Arthritis: (intubated x 4) Hx Seizures: No Hx Asthma: Yes Hx COPD: Yes (intubated x 4) Hx HIV: No Additional medical history: OBESITY. HERNIA X 2. SANDRO - Surgical History Hx Cholecystectomy: Yes Additional Surgical History: hernia repair . - Social History Smoking Status: Never Smoker Substance Use Type: Alcohol, Marijuana - Medications Home Medications: Home Medications Medication Instructions Recorded Confirmed Last Taken Type Fluticasone/Salmeterol [Advair 1 puff IH BID #1 disk.w.dev 04/19/16 07/11/17 Unknown Rx Diskus 250-50 mcg] ALPRAZolam [Xanax] 1 mg PO BID 07/11/17 07/11/17 Unknown History ARIPiprazole [Abilify] 5 mg PO BID 07/11/17 07/11/17 Unknown History Furosemide [Lasix TAB] 20 mg PO QDAY 07/11/17 07/11/17 Unknown History Omeprazole 40 mg PO QAM 07/11/17 07/11/17 Unknown History buPROPion XL [Wellbutrin XL] 150 mg PO QAM 07/11/17 07/11/17 Unknown History HYDROcodone/APAP 10-325 [[place] 1 each PO Q8HR PRN #20 tablet 08/11/17 Unknown Rx 10-325 mg TAB] HYDROcodone/APAP 5-325 [[place] 1 each PO Q6H PRN #10 tablet 09/30/17 Unknown Rx 5-325 mg TAB] Clindamycin [Clindamycin CAP] 150 mg PO Q6HR #40 capsule 07/15/19 Unknown Rx Tobramycin [Tobrex] 1 drop OP Q4H #1 bottle 07/15/19 Unknown Rx Ondansetron [Zofran Odt] 4 mg PO Q8HR PRN #20 tab.rapdis 08/06/19 Unknown Rx oxyCODONE /ACETAMINOPHEN [Percocet 1 tab PO Q6HR PRN #7 tablet 08/06/19 Unknown Rx 5/325] Fluconazole (Nf) [Diflucan TAB] 150 mg PO ONCE #1 tablet 08/20/19 Unknown Rx Ondansetron [Zofran Odt] 4 mg PO Q8HR PRN #20 tab.rapdis 08/20/19 Unknown Rx Oxycodone HCl/Acetaminophen 1 each PO Q6HR PRN #15 tablet 08/20/19 Unknown Rx [Percocet 10/325 mg] Benzonatate [Tessalon Perles] 100 mg PO Q8HR PRN #20 capsule 09/16/19 Unknown Rx traMADoL [Ultram] 50 mg PO Q6HR PRN #7 tablet 09/16/19 Unknown Rx ED Physical Exam - General Limitations: No Limitations General appearance: alert - Head Head exam: Present: atraumatic, normocephalic - Eye Eye exam: Present: normal appearance - ENT ENT exam: Present: mucous membranes moist - Respiratory Respiratory exam: Present: wheezes - Cardiovascular Cardiovascular Exam: Present: regular rate, normal rhythm - GI/Abdominal GI/Abdominal exam: Present: soft. Absent: distended, tenderness - Extremities Exam Extremities exam: Present: normal inspection - Neurological Exam Neurological exam: Present: alert, oriented X3 - Psychiatric Psychiatric exam: Present: normal affect, normal mood - Skin Skin exam: Present: warm, dry, intact, normal color ED Course Vital Signs 09/16/19 09/16/19 09/16/19 00:25 00:30 00:31 Temperature 100.1 F H Pulse Rate 93 H Pulse Rate [ Anterior Bilateral Throughout] Respiratory 20 9 L 22 Rate Respiratory Rate [Anterior Bilateral Throughout] Blood Pressure Blood Pressure 182/102 [Right] O2 Sat by Pulse 98 98 Oximetry 09/16/19 09/16/19 09/16/19 00:46 01:00 01:46 Temperature Pulse Rate 92 H 86 Pulse Rate [ 91 H Anterior Bilateral Throughout] Respiratory 31 H 14 Rate Respiratory 22 Rate [Anterior Bilateral Throughout] Blood Pressure 140/85 Blood Pressure [Right] O2 Sat by Pulse 96 97 Oximetry 09/16/19 09/16/19 09/16/19 02:00 02:16 02:30 Temperature Pulse Rate 92 H 97 H 95 H Pulse Rate [ Anterior Bilateral Throughout] Respiratory 12 16 13 Rate Respiratory Rate [Anterior Bilateral Throughout] Blood Pressure 120/101 146/89 157/88 Blood Pressure [Right] O2 Sat by Pulse 98 98 99 Oximetry 09/16/19 02:45 Temperature Pulse Rate 83 Pulse Rate [ Anterior Bilateral Throughout] Respiratory 21 Rate Respiratory Rate [Anterior Bilateral Throughout] Blood Pressure 157/79 Blood Pressure [Right] O2 Sat by Pulse 98 Oximetry ED Medical Decision Making - Radiology Data Radiology results: report reviewed, image reviewed - Medical Decision Making - CXR normal - O2 sats normal on RA - lung exam much improved following mag, decadron, albuterol/atrovent nebs - pt feeling much better - advised outpt COVID testing and self-quarantine - will d/c home, return precautions given. - Differential Diagnosis COPD, pneumonia, COVID Critical care attestation.: If time is entered above; I have spent that time in minutes in the direct care of this critically ill patient, excluding procedure time. ED Disposition Clinical Impression: COPD exacerbation Disposition: DC-01 TO HOME OR SELFCARE Is pt being admited?: No Condition: Stable Instructions: COVID-19, Chronic Obstructive Pulmonary Disease (ED) Prescriptions: Benzonatate [Tessalon Perles] 100 mg PO Q8HR PRN #20 capsule PRN Reason: Cough traMADoL [Ultram] 50 mg PO Q6HR PRN #7 tablet PRN Reason: Pain Referrals: PRIMARY CARE, [Primary Care Provider] - 2-3 Days [facility] [place] [Provider Group] - 2-3 Days Time of Disposition: 03:29
[2019-09-16 03:39] VITALS: BP 157/79
== END 2019-09-16 03:40 | disposition home or self-care (01) ==
LOC: ED 00:17
DX: J44.1 Chronic obstructive pulmonary disease with (acute) exacerbation (principal); F12.90 Cannabis use, unspecified, uncomplicated; E66.9 Obesity, unspecified; Z98.890 Other specified postprocedural states; Z88.6 Allergy status to analgesic agent; Z79.899 Other long term (current) drug therapy; Z88.8 Allergy status to other drugs, medicaments and biological substances
CPT/HCPCS: 71045; 94644; 96365; 96375; 99284; J1100; J1885; J3475